=== PATIENT | male | born 1935 | race Caucasian/White ===

== ENCOUNTER → 2019-04-27 | Outpatient (CLI) | payer MEDICARE ==
--- NOTE | 2019-04-27 22:14 | MR ---
EXAMINATION TYPE: MR iac wo/w con DATE OF EXAM: 04/27/2019 COMPARISON: None HISTORY: Vertigo CONTRAST: Performed utilizing 9 mL intravenous Gadavist gadolinium contrast. TECHNIQUE: Multiplanar, multiecho imaging on a 3.0 Josefina magnet is performed through the brain. Atte ntion is paid to the internal auditory canals with thin section imaging. Postcontrast imaging is per formed through the internal auditory canals. FINDINGS:Craniovertebral junction is normal. The pituitary is normal. Diffusion-weighted imaging is performed. No suspicious hyperintensity is present to suggest an acute intracranial infarct or acute ischemic area. Signal within the brain appears within normal limits. No suspicious hyperintensities in the white mat ter. Cerebellum appears normal. Thin section imaging is performed through the internal auditory canals and cerebellar pontine angles. No cerebellar pontine angle masses are evident. The internal auditory canals appear normal without expansion or erosion. Postcontrast imaging was performed. No suspicious enhancement is evident within the internal audito ry canals or the included portions of the brain. Postcontrast thin section imaging through the internal auditory canals is somewhat limited due to mot ion artifact. However, precontrast images did not suggest abnormality no area of suspicious signal ch anges identified within the internal auditory canals. Mastoid air cells are clear. Visualized paranasal sinuses are clear. Cerebellar pontine angles are no rmal IMPRESSIONS: 1. Normal internal auditory canals.
== END | disposition home or self-care (01) ==
LOC: RADMRIMAIN 12:59
PROVIDERS: ATTEND Otolaryngology
DX: H91.90 Unspecified hearing loss, unspecified ear (principal); R42 Dizziness and giddiness
CPT/HCPCS: 70553; A9585

== ENCOUNTER 2020-03-19 08:36 | Emergency (ER) | payer MEDICARE, OTHER ==
[2020-03-19 08:45] VITALS: RESP 18; TEMP 97.5
[2020-03-19] MEDS ORDERED: SODIUM CHLORIDE 0.9% 1,000 ML IV STA (09:21)
[2020-03-19 09:37] LABS: Basophils # (A) 0.1 k/uL (0-0.2); Basophils % (A) 1 %; Eosinophils # (A) 0.2 k/uL (0-0.7); Eosinophils % (A) 2 %; HCT 52.2 % (39.0-53.0); HGB 17.7 gm/dL (13.0-17.5); Lymphocytes # (A) 1.9 k/uL (1.0-4.8); Lymphocytes % (A) 19 %; MCV 91.2 fL (80.0-100.0); Monocytes # (A) 0.7 k/uL (0-1.0); Monocytes % (A) 7 %; Neutrophils # (A) 6.7 k/uL (1.3-7.7); Neutrophils % (A) 70 %; Platelet Count 138 k/uL (150-450); RBC 5.72 m/uL (4.30-5.90); RDW 13.8 % (11.5-15.5); WBC 9.7 k/uL (3.8-10.6)
--- NOTE | 2020-03-19 09:41 | XR ---
EXAMINATION TYPE: XR chest 2V DATE OF EXAM: 03/19/2020 COMPARISON: 11/11/2019. TECHNIQUE: PA and lateral views submitted. HISTORY: Dizziness FINDINGS: The lungs are clear and there is no pneumothorax, pleural effusion, or focal pneumonia. Hyperinflat ion suggests COPD. Linear changes involving the right mid and lower lung likely in the basis of atele ctasis. No overt failure. Arthropathy of the shoulders and degenerative change of the spine. Apical p leural thickening noted. IMPRESSION: 1. COPD. Right perihilar and lower lobe atelectasis favored over infiltrate correlate clinically
[2020-03-19 09:47] LABS: Albumin 3.8 g/dL (3.5-5.0); Calcium 9.7 mg/dL (8.4-10.2); Potassium 4.3 mmol/L (3.5-5.1); Total Bilirubin 0.8 mg/dL (0.2-1.3); Total Protein 6.3 g/dL (6.3-8.2)
--- NOTE | 2020-03-19 09:51 | ED ---
General Adult HPI - General Chief complaint: Recheck/Abnormal Lab/Rx Stated complaint: hypertension Source: patient Mode of arrival: ambulatory Limitations: no limitations - History of Present Illness Initial comments: Patient is an 84-year-old male presents emergency department after he had an episode of vertigo yesterday. Patient states that he has suffered from "dizzy spells" for several years. The episodes usually last only a few minutes before they resolve. It is described as a room spinning sensation. He did see Dr. Caldwell and had a workup in regards to these spells. He had an MRI performed in October. He is on meclizine at home for his symptoms. States that last night he was watching TV when he had sudden onset of muffled hearing. He began having the room spinning sensation and felt nauseated. He walked to the bathroom where he ended up having a bowel movement and an episode of emesis. States that his symptoms completely resolved after 15 minutes. Reports that this is the worst episode that he's ever had. He has never seen a neurologist. Patient reports that he did not want to come to the hospital however his made him. He denies having any chest pain or shortness of breath with the episode. No recent head trauma. No fevers or chills. No reported confusion from the . No unilateral numbness or weakness in his extremities. No other alleviating, precipitating or modifying factors - Related Data Home Medications Medication Instructions Recorded Confirmed Carvedilol [Coreg] 12.5 mg PO HS 11/10/19 03/19/20 Cyclobenzaprine [Flexeril] 10 mg PO HS 11/10/19 03/19/20 Ketoconazole 2% Shampoo [Nizoral] 1 applic TOPICAL Q72H 11/10/19 03/19/20 Rosuvastatin [Crestor] 10 mg PO HS 11/10/19 03/19/20 Tamsulosin [Flomax] 0.8 mg PO HS 11/10/19 03/19/20 predniSONE 10 mg PO HS 11/10/19 03/19/20 Acetaminophen Tab [Tylenol] 650 mg PO HS 03/19/20 03/19/20 Doxylamine Succinate [Unisom] 25 mg PO HS 03/19/20 03/19/20 Meclizine [Antivert] 25 mg PO HS 03/19/20 03/19/20 Melatonin 3 mg PO HS 03/19/20 03/19/20 Meloxicam 15 mg PO HS 03/19/20 03/19/20 Metoprolol Tartrate [Lopressor] 25 mg PO BID 03/19/20 03/19/20 amLODIPine [Norvasc] 5 mg PO HS 03/19/20 03/19/20 Allergies Allergy/AdvReac Type Severity Reaction Status Date / Time No Known Allergies Allergy Verified 03/19/20 10:33 Review of Systems ROS Statement: Those systems with pertinent positive or pertinent negative responses have been documented in the HPI. ROS Other: All systems not noted in ROS Statement are negative. Past Medical History Past Medical History: Hyperlipidemia, Hypertension, Prostate Disorder History of Any Multi-Drug Resistant Organisms: None Reported Past Surgical History: Appendectomy Additional Past Surgical History / Comment(s): KIDNEY STONE SURGERY Past Anesthesia/Blood Transfusion Reactions: No Reported Reaction Past Psychological History: No Psychological Hx Reported Smoking Status: Former smoker Past Alcohol Use History: None Reported Past Drug Use History: None Reported - Past Family History Son(s) Family Medical History: Cancer Additional Family Medical History / Comment(s): hodgkins General Exam Limitations: no limitations Course Vital Signs 03/19/20 03/19/20 03/19/20 08:41 08:59 10:30 Temperature 97.5 F L Pulse Rate 78 72 64 Respiratory 18 18 18 Rate Blood Pressure 158/95 133/86 159/90 O2 Sat by Pulse 97 99 96 Oximetry 03/19/20 11:08 Temperature Pulse Rate 69 Respiratory 18 Rate Blood Pressure 157/92 O2 Sat by Pulse 97 Oximetry EKG Findings - EKG Comments: EKG Findings:: EKG demonstrates normal sinus rhythm with a ventricular rate of 73. TX interval 166. QRS 104. QTC of 451. No acute ST segment elevations or depressions concerning for ischemic changes Medical Decision Making - Medical Decision Making Upon arrival patient is placed into room 6. A thorough history and physical exa m was performed. 12-lead EKG was performed. Laboratory studies were conducted. I did recommend a CT the patient's brain as he is reporting that these are the worse symptoms he has ever experienced. Laboratory studies demonstrate a creatinine of 1.29. Troponin is negative. CT the patient's brain demonstrates mild ventriculomegaly. These results are discussed with the patient. I do believe that he would benefit from a neurology consultation. Patient is to follow up with his primary care physician and request recommendations. He is to continue taking the same medications at home for her symptoms. He does have follow-up appointment with Dr. Moser scheduled in 2 weeks for which she will need blood work obtained previous to this appointment. I informed him that he needs to assess his kidney function status with Dr. Isaacs at that time. If the patient is a new or worsening symptoms she should return to the emergency room. Patient was discharged home in stable condition - Lab Data Result diagrams: 03/19/20 09:26 03/19/20 09:26 Lab Results 03/19/20 03/19/20 03/19/20 Range/Units 09:26 09:26 09:26 WBC 9.7 (3.8-10.6) k/uL RBC 5.72 (4.30-5.90) m/uL Hgb 17.7 H (13.0-17.5) gm/dL Hct 52.2 (39.0-53.0) % MCV 91.2 (80.0-100.0) fL MCH 31.0 (25.0-35.0) pg MCHC 34.0 (31.0-37.0) g/dL RDW 13.8 (11.5-15.5) % Plt Count 138 L (150-450) k/uL MPV 7.0 Neutrophils % 70 % Lymphocytes % 19 % Monocytes % 7 % Eosinophils % 2 % Basophils % 1 % Neutrophils # 6.7 (1.3-7.7) k/uL Lymphocytes # 1.9 (1.0-4.8) k/uL Monocytes # 0.7 (0-1.0) k/uL Eosinophils # 0.2 (0-0.7) k/uL Basophils # 0.1 (0-0.2) k/uL PT 10.7 (9.0-12.0) sec INR 1.0 (<1.2) APTT 24.0 (22.0-30.0) sec Sodium (137-145) mmol/L Potassium (3.5-5.1) mmol/L Chloride (98-107) mmol/L Carbon Dioxide (22-30) mmol/L Anion Gap mmol/L BUN (9-20) mg/dL Creatinine (0.66-1.25) mg/dL Est GFR (CKD-EPI)AfAm (>60 ml/min/1.73 sqM) Est GFR (CKD-EPI)NonAf (>60 ml/min/1.73 sqM) Glucose (74-99) mg/dL Plasma Lactic Acid Chivo (0.7-2.0) mmol/L Calcium (8.4-10.2) mg/dL Total Bilirubin (0.2-1.3) mg/dL AST (17-59) U/L ALT (4-49) U/L Alkaline Phosphatase (38-126) U/L Troponin I (0.000-0.034) ng/mL Total Protein (6.3-8.2) g/dL Albumin (3.5-5.0) g/dL Urine Color Yellow Urine Appearance Clear (Clear) Urine pH 6.5 (5.0-8.0) Ur Specific [place] 1.012 (1.001-1.035) Urine Protein Trace H (Negative) Urine Glucose (UA) Negative (Negative) Urine Ketones Negative (Negative) Urine Blood Negative (Negative) Urine Nitrite Negative (Negative) Urine Bilirubin Negative (Negative) Urine Urobilinogen <2.0 (<2.0) mg/dL Ur Leukocyte Esterase Trace H (Negative) Urine RBC <1 (0-5) /hpf Urine WBC 2 (0-5) /hpf Urine Mucus Rare H (None) /hpf 03/19/20 03/19/20 03/19/20 Range/Units 09:26 09:26 09:26 WBC (3.8-10.6) k/uL RBC (4.30-5.90) m/uL Hgb (13.0-17.5) gm/dL Hct (39.0-53.0) % MCV (80.0-100.0) fL MCH (25.0-35.0) pg MCHC (31.0-37.0) g/dL RDW (11.5-15.5) % Plt Count (150-450) k/uL MPV Neutrophils % % Lymphocytes % % Monocytes % % Eosinophils % % Basophils % % Neutrophils # (1.3-7.7) k/uL Lymphocytes # (1.0-4.8) k/uL Monocytes # (0-1.0) k/uL Eosinophils # (0-0.7) k/uL Basophils # (0-0.2) k/uL PT (9.0-12.0) sec INR (<1.2) APTT (22.0-30.0) sec Sodium 138 (137-145) mmol/L Potassium 4.3 (3.5-5.1) mmol/L Chloride 103 (98-107) mmol/L Carbon Dioxide 31 H (22-30) mmol/L Anion Gap 4 mmol/L BUN 24 H (9-20) mg/dL Creatinine 1.29 H (0.66-1.25) mg/dL Est GFR (CKD-EPI)AfAm 58 (>60 ml/min/1.73 sqM) Est GFR (CKD-EPI)NonAf 50 (>60 ml/min/1.73 sqM) Glucose 102 H (74-99) mg/dL Plasma Lactic Acid Chivo 1.1 (0.7-2.0) mmol/L Calcium 9.7 (8.4-10.2) mg/dL Total Bilirubin 0.8 (0.2-1.3) mg/dL AST 33 (17-59) U/L ALT 30 (4-49) U/L Alkaline Phosphatase 76 (38-126) U/L Troponin I <0.012 (0.000-0.034) ng/mL Total Protein 6.3 (6.3-8.2) g/dL Albumin 3.8 (3.5-5.0) g/dL Urine Color Urine Appearance (Clear) Urine pH (5.0-8.0) Ur Specific [place] (1.001-1.035) Urine Protein (Negative) Urine Glucose (UA) (Negative) Urine Ketones (Negative) Urine Blood (Negative) Urine Nitrite (Negative) Urine Bilirubin (Negative) Urine Urobilinogen (<2.0) mg/dL Ur Leukocyte Esterase (Negative) Urine RBC (0-5) /hpf Urine WBC (0-5) /hpf Urine Mucus (None) /hpf Disposition Clinical Impression: Vertigo, Cerebral ventriculomegaly Disposition: HOME SELF-CARE Condition: Stable Instructions (If sedation given, give patient instructions): Dizziness (ED) Additional Instructions: I recommend that you follow up with a neurologist in regard to your dizzy spells and large ventricles. Some neurologists in the area are - Dr. Aguilar, Dr. Gaffney and Dr. Art. Follow-up with your bin cleaner and have repeat laboratory studies done to ensure improvement in your kidney function. Return to the emergency room for any new or worsening symptoms Is patient prescribed a controlled substance at d/c from ED?: No Referrals: Manpreet Brock MD [Primary Care Provider] - 1-2 days Time of Disposition: 10:56
[2020-03-19 09:57] LABS: Prothrombin Time 10.7 sec (9.0-12.0)
--- NOTE | 2020-03-19 10:03 | CT ---
EXAMINATION TYPE: CT brain wo con DATE OF EXAM: 03/19/2020 COMPARISON: Correlation MRI 11/11/2019 HISTORY: 84-year-old male Dizziness TECHNIQUE: Examination was done in axial plane without intravenous contrast. Coronal and sagittal r econstructions performed. CT DLP: 1063.4 mGycm Automated exposure control for dose reduction was used. FINDINGS: There is no evidence of acute intracranial hemorrhage, acute ischemic changes, mass, mass-effect, or extra-axial fluid collection. There is no effacement of cerebral sulci or basal subarachnoid cister ns. There is mild ventriculomegaly with Smart ratio calculated at 0.38. Mild bifrontal atrophy. There is no midline shift. Lowery-white matter distinction is preserved. Atherosclerotic calcifications in the carotid siphons. Paranasal sinuses and mastoid air cells are well pneumatized. Orbits and globes are intact IMPRESSION: Mild generalized atrophy. Mild ventriculomegaly with Josafat's ratio of 0.38 may reflect central cerebra l atrophy. Correlate to exclude a component of NPH. Otherwise, no acute intracranial abnormality seen .
[2020-03-19 10:40] LABS: Appearance,Urine Clear (Clear); Bilirubin,Urine Negative (Negative); Blood,Urine Negative (Negative); Color,Urine Yellow; Glucose,Urine (UA) Negative (Negative); Ketones,Urine Negative (Negative); Leukocyte Esterase,Urine Trace (Negative); Mucus,Urine Rare /hpf; Nitrite,Urine Negative (Negative); PH, Urine 6.5 (5.0-8.0); Protein,Urine Trace (Negative); RBC,Urine <1 /hpf (0-5); Specific Gravity,Urine 1.012 (1.001-1.035); Urobilinogen,Urine <2.0 mg/dL (<2.0); WBC,Urine 2 /hpf (0-5)
[2020-03-19 11:09] VITALS: BP 157/92; PULSE 69
== END 2020-03-19 11:03 | disposition home or self-care (01) ==
LOC: EC 08:36
DX: G93.89 Other specified disorders of brain (principal); R42 Dizziness and giddiness; R11.2 Nausea with vomiting, unspecified; E78.5 Hyperlipidemia, unspecified; I10 Essential (primary) hypertension; N42.9 Disorder of prostate, unspecified; Z79.899 Other long term (current) drug therapy; Z87.891 Personal history of nicotine dependence; Z90.49 Acquired absence of other specified parts of digestive tract
CPT/HCPCS: 36415; 70450; 71046; 80053; 81001; 83605; 84484; 85025; 85610; 85730; 93005; 96374; 99284

== ENCOUNTER 2020-09-12 10:48 | Inpatient (IN) | payer MEDICARE, OTHER ==
[2020-09-12] MEDS ORDERED: MORPHINE SULFATE 2 MG/ML SYRINGE IVP STA (11:22)
[2020-09-12] MEDS ORDERED: SODIUM CHLORIDE 0.9% 500 ML 500 ML IV SCH (11:30)
--- NOTE | 2020-09-12 11:51 | US ---
EXAMINATION TYPE: US venous doppler duplex LE RT DATE OF EXAM: 09/12/2020 11:44 AM COMPARISON: NONE CLINICAL HISTORY: pain. Recent infection in shoulder, treating with antibiotics, but his right knee a nd calf have swollen up and are very painful, no h/o dvt SIDE PERFORMED: Right TECHNIQUE: The lower extremity deep venous system is examined utilizing real time linear array sonog carroll with graded compression, doppler sonography and color-flow sonography. VESSELS IMAGED: Common Femoral Vein Deep Femoral Vein Greater Saphenous Vein * Femoral Vein Popliteal Vein Small Saphenous Vein * Proximal Calf Veins (* superficial vessels) Right Leg: Negative for DVT IMPRESSION: 1. No evidence of deep venous thrombosis in the right lower extremity veins.
[2020-09-12 12:09] LABS: Basophils # (A) 0.1 k/uL (0-0.2); Basophils % (A) 1 %; Eosinophils # (A) 0.3 k/uL (0-0.7); Eosinophils % (A) 4 %; HGB 14.5 gm/dL (13.0-17.5); Lymphocytes # (A) 1.7 k/uL (1.0-4.8); Lymphocytes % (A) 17 %; MCH 29.9 pg (25.0-35.0); MCHC 33.7 g/dL (31.0-37.0); MCV 88.9 fL (80.0-100.0); Monocytes # (A) 0.8 k/uL (0-1.0); Monocytes % (A) 9 %; Neutrophils # (A) 6.5 k/uL (1.3-7.7); Neutrophils % (A) 68 %; Platelet Count 151 k/uL (150-450); RBC 4.84 m/uL (4.30-5.90); RDW 13.5 % (11.5-15.5); WBC 9.5 k/uL (3.8-10.6)
[2020-09-12 12:21] LABS: Partial Thromboplastin Time 22.4 sec (22.0-30.0); Prothrombin Time 10.6 sec (9.0-12.0)
[2020-09-12 12:25] LABS: Albumin 3.4 g/dL (3.5-5.0); C Reactive Protein 6.3 mg/dL (<1.0); Calcium 9.6 mg/dL (8.4-10.2); Potassium 4.1 mmol/L (3.5-5.1); Total Bilirubin 0.7 mg/dL (0.2-1.3); Total Protein 5.8 g/dL (6.3-8.2)
--- NOTE | 2020-09-12 12:45 | XR ---
EXAMINATION TYPE: XR knee complete RT DATE OF EXAM: 09/12/2020 COMPARISON: NONE HISTORY: Pain TECHNIQUE: Three views are submitted. FINDINGS: Complete loss of joint spaces the medial and lateral compartment. Large suprapatellar bursal fluid co llection hypertrophic spurring of the patella and narrowing of the femoral joint. Vascular and soft t issue calcifications noted. No erosive changes. IMPRESSION: 1. Severe osteoarthritis with complete loss of joint space involving the medial compartment of the kn ee. 2. Large suprapatellar bursal
[2020-09-12] MEDS ORDERED: HYDROmorphone 0.5 MG/0.5 ML SYRINGE IVP STA ×2 (12:54→14:13)
[2020-09-12] MEDS ORDERED: ACETAMINOPHEN TAB 325 MG TAB PO STA (12:55)
[2020-09-12 13:40] LABS: Erythrocyte Sedimentation Rate 13 mm/hr (0-15)
--- NOTE | 2020-09-12 14:29 | ED ---
General Adult HPI - General Chief complaint: Extremity Injury, Lower Stated complaint: Knee pain Time Seen by Provider: 09/12/20 11:05 Source: patient Mode of arrival: ambulatory Limitations: no limitations - History of Present Illness Initial comments: 84-year-old male with a past medical history of hyperlipidemia, hypertension presents to the emergency room for a chief complaint of right knee pain. Patient reports that he had shoulder surgery about 2 months ago in [place] and had a wound infection, was being treated with rifampin and clindamycin over the past month orally. Over the past few days he started to have right knee pain and swelling. States that he has pain walking on the knee. States he can no longer bend his knee. Patient is concerned it could be related to the shoulder infection.Patient has no other complaints at this time including shortness of breath, chest pain, abdominal pain, nausea or vomiting, headache, or visual c hanges. - Related Data Home Medications Medication Instructions Recorded Confirmed Carvedilol [Coreg] 12.5 mg PO HS 11/10/19 03/19/20 Cyclobenzaprine [Flexeril] 10 mg PO HS 11/10/19 03/19/20 Ketoconazole 2% Shampoo [Nizoral] 1 applic TOPICAL Q72H 11/10/19 03/19/20 Rosuvastatin [Crestor] 10 mg PO HS 11/10/19 03/19/20 Tamsulosin [Flomax] 0.8 mg PO HS 11/10/19 03/19/20 predniSONE 10 mg PO HS 11/10/19 03/19/20 Acetaminophen Tab [Tylenol] 650 mg PO 03/19/20 03/19/20 Doxylamine Succinate [Unisom] 25 mg PO HS 03/19/20 03/19/20 Meclizine [Antivert] 25 mg PO HS 03/19/20 03/19/20 Melatonin 3 mg PO 03/19/20 03/19/20 Meloxicam 15 mg PO HS 03/19/20 03/19/20 Metoprolol Tartrate [Lopressor] 25 mg PO BID 03/19/20 03/19/20 amLODIPine [Norvasc] 5 mg PO HS 03/19/20 03/19/20 Allergies Allergy/AdvReac Type Severity Reaction Status Date / Time No Known Allergies Allergy Verified 06/30/21 10:51 Review of Systems ROS Statement: Those systems with pertinent positive or pertinent negative responses have been documented in the HPI. ROS Other: All systems not noted in ROS Statement are negative. Past Medical History Past Medical History: Hyperlipidemia, Hypertension, Prostate Disorder History of Any Multi-Drug Resistant Organisms: None Reported Past Surgical History: Appendectomy Additional Past Surgical History / Comment(s): KIDNEY STONE SURGERY Past Anesthesia/Blood Transfusion Reactions: No Reported Reaction Past Psychological History: No Psychological Hx Reported Smoking Status: Former smoker Past Alcohol Use History: None Reported Past Drug Use History: None Reported - Past Family History Son(s) Family Medical History: Cancer Additional Family Medical History / Comment(s): hodgkins General Exam Limitations: no limitations General appearance: alert, in no apparent distress Head exam: Present: atraumatic, normocephalic, normal inspection Eye exam: Present: normal appearance, PERRL, EOMI. Absent: scleral icterus, conjunctival injection, periorbital swelling ENT exam: Present: normal exam, mucous membranes moist Neck exam: Present: normal inspection. Absent: tenderness, meningismus, lymphadenopathy Respiratory exam: Present: normal lung sounds bilaterally. Absent: respiratory distress, wheezes, rales, rhonchi, stridor Cardiovascular Exam: Present: regular rate, normal rhythm, normal heart sounds. Absent: systolic murmur, diastolic murmur, rubs, gallop, clicks GI/Abdominal exam: Present: soft, normal bowel sounds. Absent: distended, tenderness, guarding, rebound, rigid Extremities exam: Present: normal capillary refill (Capillary refill less than 2 seconds, DP pulse 2+ right lower extremity.), joint swelling (Significant edema noted of the right knee), other (No cellulitis noted of the right knee.). Absent: full ROM (Patient has 15 flexion, extension to neutral position of the right knee.), calf tenderness Course Vital Signs 09/12/20 09/12/20 09/12/20 10:51 12:40 14:00 Temperature 98 F 101.1 F H Pulse Rate 90 106 H 102 H Respiratory 18 20 20 Rate Blood Pressure 184/107 142/87 138/71 O2 Sat by Pulse 98 97 98 Oximetry Procedures - Joint Aspiration/Injection Consent Obtained: verbal consent Indications: R/O septic arthritis Side of Body: right Joint Aspirated: knee Ultrasound Guidance: No Skin Prep: Chlorhexidine Local Anesthesia Used: Lidocaine 1% Amount of Anesthesia Used (mLs): 2 Needle Size Used: 18G Syringe Size Used: 10cc Fluid Obtained: viscous Total Fluid Obtained (mls): 50 Patient Tolerated Procedure: well, no complications Medical Decision Making - Medical Decision Making Initially afebrile however did develop a fever of 101.1. Initially hypertensive which did improve throughout his stay. CBC shows a white count of 9. CMP unremarkable. CRP is elevated at 6.3. Ultrasound negative for DVT. X-ray of the right knee show significant arthritis with a large suprapatellar bursa. Sup rapatellar bursa of the right knee was tapped and culture sent. Given fever and significant edema patient will be started on broad-spectrum antibiotics. We will obtain a urinalysis and chest x-ray as well as blood cultures to thoroughly evaluate patient's fever source as well. I did discuss this case with Nadeem LINO from orthopedics who will consult on patient. Discussed case with medicine who will admit. - Lab Data Result diagrams: 09/12/20 11:42 09/12/20 11:42 Lab Results 09/12/20 09/12/20 09/12/20 Range/Units 11:42 11:42 11:42 WBC 9.5 (3.8-10.6) k/uL RBC 4.84 (4.30-5.90) m/uL Hgb 14.5 (13.0-17.5) gm/dL Hct 43.0 (39.0-53.0) % MCV 88.9 (80.0-100.0) fL MCH 29.9 (25.0-35.0) pg MCHC 33.7 (31.0-37.0) g/dL RDW 13.5 (11.5-15.5) % Plt Count 151 (150-450) k/uL MPV 7.0 Neutrophils % 68 % Lymphocytes % 17 % Monocytes % 9 % Eosinophils % 4 % Basophils % 1 % Neutrophils # 6.5 (1.3-7.7) k/uL Lymphocytes # 1.7 (1.0-4.8) k/uL Monocytes # 0.8 (0-1.0) k/uL Eosinophils # 0.3 (0-0.7) k/uL Basophils # 0.1 (0-0.2) k/uL ESR 13 (0-15) mm/hr PT 10.6 (9.0-12.0) sec INR 1.0 (<1.2) APTT 22.4 (22.0-30.0) sec Sodium 137 (137-145) mmol/L Potassium 4.1 (3.5-5.1) mmol/L Chloride 103 (98-107) mmol/L Carbon Dioxide 28 (22-30) mmol/L Anion Gap 6 mmol/L BUN 21 H (9-20) mg/dL Creatinine 1.10 (0.66-1.25) mg/dL Est GFR (CKD-EPI)AfAm 71 (>60 ml/min/1.73 sqM) Est GFR (CKD-EPI)NonAf 61 (>60 ml/min/1.73 sqM) Glucose 103 H (74-99) mg/dL Plasma Lactic Acid Chivo (0.7-2.0) mmol/L Calcium 9.6 (8.4-10.2) mg/dL Total Bilirubin 0.7 (0.2-1.3) mg/dL AST 27 (17-59) U/L ALT 13 (4-49) U/L Alkaline Phosphatase 103 (38-126) U/L C-Reactive Protein 6.3 H (<1.0) mg/dL Total Protein 5.8 L (6.3-8.2) g/dL Albumin 3.4 L (3.5-5.0) g/dL 09/12/20 Range/Units 11:42 WBC (3.8-10.6) k/uL RBC (4.30-5.90) m/uL Hgb (13.0-17.5) gm/dL Hct (39.0-53.0) % MCV (80.0-100.0) fL MCH (25.0-35.0) pg MCHC (31.0-37.0) g/dL RDW (11.5-15.5) % Plt Count (150-450) k/uL MPV Neutrophils % % Lymphocytes % % Monocytes % % Eosinophils % % Basophils % % Neutrophils # (1.3-7.7) k/uL Lymphocytes # (1.0-4.8) k/uL Monocytes # (0-1.0) k/uL Eosinophils # (0-0.7) k/uL Basophils # (0-0.2) k/uL ESR (0-15) mm/hr PT (9.0-12.0) sec INR (<1.2) APTT (22.0-30.0) sec Sodium (137-145) mmol/L Potassium (3.5-5.1) mmol/L Chloride (98-107) mmol/L Carbon Dioxide (22-30) mmol/L Anion Gap mmol/L BUN (9-20) mg/dL Creatinine (0.66-1.25) mg/dL Est GFR (CKD-EPI)AfAm (>60 ml/min/1.73 sqM) Est GFR (CKD-EPI)NonAf (>60 ml/min/1.73 sqM) Glucose (74-99) mg/dL Plasma Lactic Acid Chivo 1.1 (0.7-2.0) mmol/L Calcium (8.4-10.2) mg/dL Total Bilirubin (0.2-1.3) mg/dL AST (17-59) U/L ALT (4-49) U/L Alkaline Phosphatase (38-126) U/L C-Reactive Protein (<1.0) mg/dL Total Protein (6.3-8.2) g/dL Albumin (3.5-5.0) g/dL Disposition Clinical Impression: Fever Narrative: suspect septic arthritis Disposition: ADMITTED IP TO THIS HOSP Is patient prescribed a controlled substance at d/c from ED?: No Referrals: Manpreet Brock MD [Primary Care Provider] - 1-2 days Time of Disposition: 14:29
[2020-09-12] MEDS ORDERED: PIPERACILLIN-TAZOBACTAM 3.375 GM in SODIUM CHLORIDE 0.9% 100 ML IVPB STA (14:30)
[2020-09-12] MEDS ORDERED: VANCOMYCIN IV PER PHARMACY 1 EACH MISC MISCELLANE PRN (14:30)
[2020-09-12] MEDS ORDERED: NALOXONE 0.4 MG/ML 1 ML VIAL IV PRN (14:31)
[2020-09-12] MEDS ORDERED: ONDANSETRON 4 MG/2 ML VIAL IVP PRN (14:31)
[2020-09-12] MEDS ORDERED: ACETAMINOPHEN TAB 325 MG TAB PO PRN (14:31)
[2020-09-12] MEDS ORDERED: VANCOMYCIN 1,500 MG in SODIUM CHLORIDE 0.9% 250 ML IVPB STA (14:38)
[2020-09-12 14:44] LABS: Appearance,Urine Clear (Clear); Bilirubin,Urine Negative (Negative); Blood,Urine Trace (Negative); Color,Urine Dark Yellow; Glucose,Urine (UA) Negative (Negative); Ketones,Urine 1+ (Negative); Leukocyte Esterase,Urine Negative (Negative); Mucus,Urine Rare /hpf; Nitrite,Urine Negative (Negative); PH, Urine 5.5 (5.0-8.0); Protein,Urine 1+ (Negative); RBC,Urine 1 /hpf (0-5); Specific Gravity,Urine 1.023 (1.001-1.035); Urobilinogen,Urine <2.0 mg/dL (<2.0); WBC,Urine 3 /hpf (0-5)
[2020-09-12] MEDS: SODIUM CHLORIDE 0.9% 1,000 ML IV SCH ×2 (15:00→23:48)
[2020-09-12 15:03] LABS: Appearance,BF Cloudy; Nucleated Cells, Body Fluid 2680 /uL; RBC, Body Fluid 160 /uL
[2020-09-12 15:17] LABS: Mononuclear WBC,Body Fluid 39 %; Polynuclear WBC,Body Fluid 61 %; Total Cells Counted,Body Fluid 100
--- NOTE | 2020-09-12 17:16 | XR ---
EXAMINATION TYPE: XR chest 2V DATE OF EXAM: 09/12/2020 COMPARISON: 03/19/2020 HISTORY: Fever TECHNIQUE: Frontal and lateral views of the chest are obtained. FINDINGS: There is minimal right basilar hazy opacity. No pleural effusion, or pneumothorax seen. T he cardiac silhouette size is within normal limits. No acute osseous abnormality. Interval right shou lder arthroplasty seen. IMPRESSION: Minimal right basilar opacity, compatible with atelectasis.
[2020-09-12] MEDS: HYDROmorphone 0.5 MG/0.5 ML SYRINGE IVP PRN ×2 (17:59→23:47)
--- NOTE | 2020-09-12 18:10 | P.CNOR ---
<Nadeem Rob - Last Filed: 09/12/20 18:10> History of Present Illness - [facility] Consult date: 09/12/20 History of present illness: This patient is an 84- year old male with a past medical history of hyperlipidemia, hypertension that presented to [facility] emergency department today with complaints of right knee pain. The patient states there is no injury. He states he began experiencing right knee pain about a week ago. He states the pain has slowly been increasing over the past few days, and today he was unable to bend or straighten the knee without pain. He also notes significant swelling. Therefore, he presented to the emergency department for further evaluation. Patient's white blood cell count is 9.5, CRP is 6.3, current temperature is 99.9F. Patient's right knee was aspirated in the emergency department, synovial fluid was sent to the lab for analysis. Doppler US of the right lower extremity negative for DVT. Patient was admitted under the care of internal medicine, with a consult placed to orthopedic surgery for concern of the right knee septic arthritis. He states he has a history of right shoulder surgery in early July of this year at [place]. He states he did have an infection following the surgery, although he ever required an I&D or additional operation. He states that this infection was treated with oral antibiotics. Patient states he has otherwise felt well lately with no recent sickness. He denies chest pain, shortness breath, nausea, vomiting, fevers, chills. He is otherwise feeling well besides his knee pain. He denies pain in other joints. Vital signs stable. Dr. Solis is also bedside examining the patient at this time. Past Medical History Past Medical History: Hyperlipidemia, Hypertension, Prostate Disorder History of Any Multi-Drug Resistant Organisms: None Reported Past Surgical History: Appendectomy Additional Past Surgical History / Comment(s): KIDNEY STONE SURGERY Past Anesthesia/Blood Transfusion Reactions: No Reported Reaction Past Psychological History: No Psychological Hx Reported Smoking Status: Former smoker Past Alcohol Use History: None Reported Past Drug Use History: None Reported - Past Family History Son(s) Family Medical History: Cancer Additional Family Medical History / Comment(s): hodgkins Medications and Allergies Home Medications Medication Instructions Recorded Confirmed Type Cyclobenzaprine [Flexeril] 10 mg PO HS PRN 11/10/19 09/12/20 History Rosuvastatin [Crestor] 10 mg PO HS 11/10/19 09/12/20 History Tamsulosin [Flomax] 0.8 mg PO HS 11/10/19 09/12/20 History predniSONE 10 mg PO HS 11/10/19 09/12/20 History Meclizine [Antivert] 25 mg PO HS 03/19/20 09/12/20 History Meloxicam 15 mg PO HS 03/19/20 09/12/20 History Metoprolol Tartrate [Lopressor] 12.5 mg PO HS 03/19/20 09/12/20 History amLODIPine [Norvasc] 5 mg PO HS 03/19/20 09/12/20 History Carvedilol [Coreg] 25 mg PO BID 09/12/20 09/12/20 History Diazepam [Valium] 5 mg PO TID PRN 09/12/20 09/12/20 History Donepezil [Aricept] 20 mg PO HS 09/12/20 09/12/20 History clindamycin HCL [Cleocin] 300 mg PO BID 09/12/20 09/12/20 History rifAMPin [Rifampin] 300 mg PO BID 09/12/20 09/12/20 History Allergies Allergy/AdvReac Type Severity Reaction Status Date / Time No Known Allergies Allergy Verified 09/12/20 15:08 Physical Examination On examination, the patient is lying in bed in no apparent distress. He is alert and oriented 3. His head appears atraumatic and normocephalic. His breathing appears nonlabored. On inspection of his bilateral upper extremities, there is no obvious deformity or signs of trauma. There is a healed incision of the right anterior shoulder with no signs of infection. Inspection of the left lower extremity, no obvious deformities or signs of trauma. On inspection of the right knee, there is diffuse swelling. The patient has a very large knee effusion. There is no significant warmth or erythema to the knee. No open wounds or lacerations. There is diffuse pain on palpation of the knee. No pain on palpation of the right hip, thigh, lower leg, ankle, foot. There is pain with passive range of motion of the knee at extremes, although I am able to perform gentle flexion and extension without discomfort of the patient. Stability of the knee is unable to be assessed due to pain. Motor and sensory function is intact of the right lower extremity. Dorsalis pedis pulse +2, the right lower extremity is warm and well-perfused with brisk capillary refill distally. The calf is soft nontender to palpation. Results Right knee x-ray 09/12/20: Severe tricompartmental arthritis of the right knee. No acute fractures. - Labs Labs: Abnormal Lab Results - Last 24 Hours (Table) 09/12/20 09/12/20 Range/Units 11:42 14:29 BUN 21 H (9-20) mg/dL Glucose 103 H (74-99) mg/dL C-Reactive Protein 6.3 H (<1.0) mg/dL Total Protein 5.8 L (6.3-8.2) g/dL Albumin 3.4 L (3.5-5.0) g/dL Urine Protein 1+ H (Negative) Urine Ketones 1+ H (Negative) Urine Blood Trace H (Negative) Urine Mucus Rare H (None) /hpf H & H 09/12/20 Range/Units 11:42 Hgb 14.5 (13.0-17.5) gm/dL Hct 43.0 (39.0-53.0) % Coagulation 09/12/20 Range/Units 11:42 INR 1.0 (<1.2) Result Diagrams: 09/12/20 11:42 09/12/20 11:42 Assessment and Plan Assessment: Right knee pain Right knee effusion Severe right knee arthritis Plan: - Patient was discussed with Dr. Rodríguez. Upon review of the patient's right knee synovial fluid analysis, nucleated cells resulted as 2,680 /uL. There is low concern for septic arthritis of the right knee at this time. We have do not have plans for emergent surgery at this time. Crystals and culture results are currently still pending. - Recommended rest and elevate of the knee for swelling and pain control. - Antibiotics and medical management per admitting team. - We will re-assess patient in the morning and make recommendations as needed. <Elizabeth Rodríguez - Last Filed: 09/13/20 09:30> Physical Examination Osteopathic Statement: *. No significant issues noted on an osteopathic structural exam other than those noted in the History and Physical/Consult. Results - Labs Labs: Abnormal Lab Results - Last 24 Hours (Table) 09/12/20 09/12/20 09/12/20 Range/Units 11:42 14:29 14:29 BUN 21 H (9-20) mg/dL Glucose 103 H (74-99) mg/dL C-Reactive Protein 6.3 H (<1.0) mg/dL Total Protein 5.8 L (6.3-8.2) g/dL Albumin 3.4 L (3.5-5.0) g/dL Urine Protein 1+ H (Negative) Urine Ketones 1+ H (Negative) Urine Blood Trace H (Negative) Urine Mucus Rare H (None) /hpf Synovial Crystals Seen A (None Seen) Microbiology - Last 24 Hours (Table) 09/12/20 14:29 Gram Stain - Preliminary Knee - Right Body Fluid Culture - Preliminary H & H 09/12/20 Range/Units 11:42 Hgb 14.5 (13.0-17.5) gm/dL Hct 43.0 (39.0-53.0) % Coagulation 09/12/20 Range/Units 11:42 INR 1.0 (<1.2) Result Diagrams: 09/12/20 11:42 09/13/20 05:32 Assessment and Plan Plan: agree with above. images and labs reviewed. will follow closely
[2020-09-12] MEDS ORDERED: MECLIZINE 25 MG TAB PO PRN (18:28)
[2020-09-12 20:52] LABS: LDH, Body Fluid Source Body Fluid
[2020-09-12] MEDS ORDERED: predniSONE 10 MG TAB PO SCH (21:00)
[2020-09-12 21:28] LABS: Glucose, BF Source Body Fluid; Glucose, Body Fluid 71 mg/dL; Total Protein, Body Fluid 3300 mg/dL
[2020-09-12] MEDS: diazePAM 5 MG TAB PO PRN (21:47)
[2020-09-12] MEDS: HEPARIN SODIUM,PORCINE/PF 5,000 UNIT/0.5 ML SYRINGE SQ SCH (21:47)
[2020-09-12] MEDS: CYCLOBENZAPRINE 10 MG TAB PO PRN (21:47)
[2020-09-12] MEDS: TAMSULOSIN 0.4 MG CAP.ER.24H PO SCH (21:48)
[2020-09-12] MEDS: DONEPEZIL 10 MG TAB PO SCH (21:48)
[2020-09-12] MEDS: amLODIPine 5 MG TAB PO SCH (21:49)
[2020-09-12] MEDS: carvediloL 12.5 MG TAB PO SCH (21:52)
[2020-09-13] MEDS ORDERED: PIPERACILLIN-TAZOBACTAM 3.375 GM in SODIUM CHLORIDE 0.9% 100 ML IVPB SCH ×2
[2020-09-13] MEDS: SODIUM CHLORIDE 0.9% 1,000 ML IV SCH ×2 (00:22→08:03)
[2020-09-13] MEDS: HYDROmorphone 0.5 MG/0.5 ML SYRINGE IVP PRN ×4 (02:52→15:19)
--- NOTE | 2020-09-13 06:20 | P.HPIM ---
History of Present Illness H&P Date: 09/12/20 Chief Complaint: Right knee swelling and pain. Patient is a 84-year-old male with a known history of hypertension, hyperlipidemia, BPH and recent history of right shoulder surgery on July 19 presents to ER with complaints of right knee pain and swelling. Patient says that he has been having right knee increased swelling over the last weekend and gradually getting worse. Patient presented ER for evolution. Patient was tachycardic and febrile with T-max 101.1 on admission. Pulse ox 97% on room air. Denied any complaints of chest pain or shortness of breath. No cough or sputum production. No nausea vomiting or abdominal pain or diarrhea. Denied any weakness in the leg. No drainage. Patient says that she did have infection following the right shoulder surgery and underwent I&D and antibiotic course. Laboratory data showed pelvis and 9.5 hemoglobin 42.0 and platelets 151 BUN 21 and 1.1 CRP 6.3 and total protein 5.8, all living 3.4 UA negative for infection Chest x-ray showed minimal right basilar opacity compatible with atelectasis. X-ray of the right knee showed severe osteoarthritis with complete loss of joint space involving the medial compartment of the knee. Large suprapatellar bursal fluid collection.. Review of Systems Constitutional: Patient denies any fever or chills . No generalized weakness or weight loss. Abdomen: Patient denied nausea vomiting and diarrhea and abdominal pain. Cardiovascular: Patient denies any chest pain or short of breath no palpitations. Respiratory: patient denied any cough is from production. No shortness of breath Neurologic: Patient denied any numbness or tingling headache. Musculoskeletal: Right knee swelling and pain. Skin: Negative Psychiatric: Negative Endocrine: No heat or cold intolerance. No recent weight gain. Genitourinary: No dysuria or hematuria. All other 14 point ROS negative except the above Past Medical History Past Medical History: Hyperlipidemia, Hypertension, Prostate Disorder History of Any Multi-Drug Resistant Organisms: None Reported Past Surgical History: Appendectomy Additional Past Surgical History / Comment(s): KIDNEY STONE SURGERY Past Anesthesia/Blood Transfusion Reactions: No Reported Reaction Past Psychological History: No Psychological Hx Reported Smoking Status: Former smoker Past Alcohol Use History: None Reported Past Drug Use History: None Reported - Past Family History Son(s) Family Medical History: Cancer Additional Family Medical History / Comment(s): hodgkins Medications and Allergies Home Medications Medication Instructions Recorded Confirmed Type Cyclobenzaprine [Flexeril] 10 mg PO HS PRN 11/10/19 09/12/20 History Rosuvastatin [Crestor] 10 mg PO HS 11/10/19 09/12/20 History Tamsulosin [Flomax] 0.8 mg PO HS 11/10/19 09/12/20 History predniSONE 10 mg PO HS 11/10/19 09/12/20 History Meclizine [Antivert] 25 mg PO HS 03/19/20 09/12/20 History Meloxicam 15 mg PO HS 03/19/20 09/12/20 History Metoprolol Tartrate [Lopressor] 12.5 mg PO HS 03/19/20 09/12/20 History amLODIPine [Norvasc] 5 mg PO HS 03/19/20 09/12/20 History Carvedilol [Coreg] 25 mg PO BID 09/12/20 09/12/20 History Diazepam [Valium] 5 mg PO TID PRN 09/12/20 09/12/20 History Donepezil [Aricept] 20 mg PO HS 09/12/20 09/12/20 History clindamycin HCL [Cleocin] 300 mg PO BID 09/12/20 09/12/20 History rifAMPin [Rifampin] 300 mg PO BID 09/12/20 09/12/20 History Allergies Allergy/AdvReac Type Severity Reaction Status Date / Time No Known Allergies Allergy Verified 09/12/20 15:08 Physical Exam Vitals: Vital Signs Temp Pulse Pulse Resp BP BP Pulse Ox 09/12/20 18:48 98.3 F 96 19 168/84 95 09/12/20 18:12 97.9 F 102 H 22 216/80 95 09/12/20 16:57 99.9 F H 71 18 135/70 97 09/12/20 15:00 100.5 F H 72 18 141/67 98 09/12/20 14:00 102 H 20 138/71 98 09/12/20 12:40 101.1 F H 106 H 20 142/87 97 09/12/20 10:51 98 F 90 18 184/107 98 Intake and Output 09/12/20 09/12/20 09/12/20 06:59 14:59 22:59 Other: # Voids 1 Weight 81.647 kg 81.647 kg PHYSICAL EXAMINATION: Patient is lying in the bed comfortably, no acute distress, awake alert and oriented.. HEENT: Normocephalic. Neck is supple. Pupils reactive. Nostrils clear. Oral cav ity is moist. Neck reveals no JVD, carotid bruits, or thyromegaly. CHEST EXAMINATION: Trachea is central. Symmetrical expansion. Bibasilar diminished sounds, Lung zapien clear to auscultation and percussion. CARDIAC: Normal S1, S2 with no gallops. No murmurs ABDOMEN: Soft. Bowel sounds normal. No organomegaly. No abdominal bruits. Extremities: reveal no edema. No clubbing or cyanosis Neurologically awake, alert, oriented x3 with well-coordinated movements. No focal deficits noted Skin: No rash or skin lesions. Psychiatric: Coperative. Nonsuicidal Musculoskeletal: Patient does have right knee joint effusion, tenderness to palpation and warm to touch... Results CBC & Chem 7: 09/12/20 11:42 09/13/20 05:32 Labs: Abnormal Lab Results - Last 24 Hours (Table) 09/12/20 09/12/20 Range/Units 11:42 14:29 BUN 21 H (9-20) mg/dL Glucose 103 H (74-99) mg/dL C-Reactive Protein 6.3 H (<1.0) mg/dL Total Protein 5.8 L (6.3-8.2) g/dL Albumin 3.4 L (3.5-5.0) g/dL Urine Protein 1+ H (Negative) Urine Ketones 1+ H (Negative) Urine Blood Trace H (Negative) Urine Mucus Rare H (None) /hpf Microbiology - Last 24 Hours (Table) 09/12/20 14:29 Body Fluid Culture - Preliminary Knee - Right Thrombosis Risk Factor Assmnt - DVT/VTE Prophylaxis DVT/VTE Prophylaxis: Pharmacologic Prophylaxis ordered - Choose All That Apply Each Factor Represents 1 point: History of prior major surgery (<1month) Each Risk Factor Represents 3 Points: Age 75 years or older Thrombosis Risk Factor Assessment Total Risk Factor Score: 4 Thrombosis Risk Factor Assessment Level: Moderate Risk Assessment and Plan Assessment: Right knee joint effusion likely due to severe osteoarthritis versus gout Possible septic arthritis with fever and tachycardia but no leukocytosis. Recent right shoulder surgery on 07/19/2020 followed by infection and I&D, status post antibiotic course. Hypertension Hyperlipidemia BPH DVT prophylaxis with heparin subcu Previous history of smoking Plan: Patient will be continued on pain management and IV antibiotics in the form of vancomycin. He was given a dose of Zosyn in the ER. Patient was seen by orthopedic surgery and underwent right knee joint aspiration. Follow-up fluid cell count differential, fluid culture and crystals. Continue with home medications and follow up closely. ID will be consulted. Time with Patient: Greater than 30
[2020-09-13] MEDS: carvediloL 12.5 MG TAB PO SCH ×2 (08:02→16:47)
[2020-09-13] MEDS: VANCOMYCIN 1,500 MG in SODIUM CHLORIDE 0.9% 250 ML IVPB SCH ×2 (08:02→21:47)
[2020-09-13] MEDS: HEPARIN SODIUM,PORCINE/PF 5,000 UNIT/0.5 ML SYRINGE SQ SCH ×2 (08:02→21:47)
[2020-09-13] MEDS: PANTOPRAZOLE 40 MG TABLET PO SCH (08:03)
--- NOTE | 2020-09-13 08:19 | CONS ---
CONSULTATION DATE OF SERVICE: 09/12/2020 REASON FOR CONSULTATION: Right knee septic arthritis. HISTORY OF PRESENT ILLNESS: The patient is an 84-year-old male presenting to [facility] ER for evaluation of right knee pain and swelling. The patient's symptoms have been going on for about a week. The patient denies having any history of any trauma or fall. The patient did have a gradual worsening of his right knee pain and described the pain to be more of a throbbing to dull aching with intensity almost 7 to 8/10. The patient did have locking of his knee and was not able to move his knee and that concerned him. He also had some chills. With these symptoms, the patient presented to the hospital. On arrival to the ER, the patient did have fever of 101 degrees Fahrenheit. The patient was evaluated by the ER physician. The patient did have a right knee arthrocentesis done. The fluid was cloudy. However, the white count was only 2600. The patient has been started on vancomycin and Zosyn. The patient was admitted to the hospital. Infectious Disease was consulted for further management of antibiotic therapy. The patient apparently recently did have a right shoulder surgery and apparently seems to have infection after the surgery, which has been treated with oral antibiotic in the form of clindamycin and rifampin. The patient is not sure about the name of the pathogen that was aspirated from his right shoulder area, as the surgery was done outside of this facility and the patient is concerned that he may have the same infection from the right shoulder to the right knee area. REVIEW OF SYSTEMS: Positive points have been mentioned in HPI. Rest of systems are negative. PAST MEDICAL HISTORY: Hypertension, hyperlipidemia, prostate disorder, history of kidney stone, recent right shoulder surgery followed by infection. PAST SURGICAL HISTORY: Appendectomy and right shoulder surgery. SOCIAL HISTORY: The patient did have a remote history of smoking. No drinking or drug use. FAMILY HISTORY: Son with history of Hodgkin lymphoma. ALLERGIES: No known drug allergies. MEDICATIONS: Currently include the patient is on Zosyn, vancomycin, Tylenol, Norvasc, Coreg, Flexeril, Valium, Aricept, Dilaudid, Antivert, Narcan Zofran, Protonix, prednisone, Flomax. PHYSICAL EXAMINATION: VITAL SIGNS: Blood pressure is 162/84 with a pulse of 96, temperature of 98.8, T-max is 101 degrees Fahrenheit. The patient is 95% on room air. GENERAL DESCRIPTION: Patient is an elderly male lying in bed in no distress. No tachypnea or accessory muscles of respiration use. HEENT: Examination shows no pallor or scleral icterus. Oral mucous membrane is dry. NECK: Trachea central, no thyromegaly. LUNGS: Unlabored breathing, clear to auscultation anteriorly. No wheeze or crackle. HEART: S1-S2, regular rate and rhythm. ABDOMEN: Soft, no tenderness. No guarding or rigidity. EXTREMITIES: No edema of the feet. The right knee has some swelling, minimal warmth and tenderness. No open wound or any drainage. NEUROLOGICAL: Patient is awake, alert, oriented times three. Mood and affect normal. LABS: Hemoglobin is 14.5, white count 9.5, BUN of 21, creatinine 1.10. Electrolytes have been normal. Liver enzymes are normal. CRP is 6.3. Urine is negative. The right knee fluid was cloudy with 2680 WBC, 61% PMN, protein is 3300. X-rays was negative for infection. Ultrasound was negative for any DVT. DIAGNOSTIC IMPRESSION: Patient presented to hospital with right knee pain of one-day duration with no history of any trauma in this patient who did have a fever that is slightly concerning and also has a history of right shoulder infection after surgery, though the right knee aspirate did not look infected and the white count is only 2600. However, in view of his fever and recent right shoulder surgery infection are concerning and will need to cover with antibiotic while waiting for the culture to finalize. PLAN: 1. We will continue the patient on vancomycin, Pharmacy to dose target of 15, however discontinue Zosyn to decrease risk of nephrotoxicity. 2. Gentle IV fluid. 3. We will follow on his clinical condition and culture to further adjust medication if needed. Thank you for this consultation. Will follow this patient along with you. MMODL / IJN: [id number] /
--- NOTE | 2020-09-13 10:09 | P.PN ---
Progress Note - Text Progress Note Date: 09/13/20 The patient is seen and examined at bedside. I reviewed his H&P and I reviewed his history with the patient as well. His swelling in his right knee seems to be improving today and there is no erythema. He still has significant pain and difficulty with mobilization and ambulation. He is not having any significant fevers. His cultures are negative thus far. He had negative white count.. No injury to his knee and had denies any history of gout He had infection in his right shoulder after surgery with another facility in July. He says that seems to be improving but is not happy with the treatment. He was started on antibiotics yesterday and has been on oral prednisone in the evenings. He feels his left knee may be starting to swell as well. overnight temperature and 100.2 His white count was 9 and his cell count and his knee aspirated were only less than 3000 x-rays show severe degenerative osteoarthritis at the right knee with no evidence of obvious fracture At his knee he has significant swelling there is no erythema. He is diffusely tender over his anterior knee. His calves and thighs are soft nontender. He does not have severe pain with gentle small range of motion. He has no pain with passive stretch. His garments are soft. His left knee there is mild effusion without erythema. He has good strength and motion in his left knee. Assessment and plan Acute right knee pain and swelling, of uncertain etiology Right knee osteoarthritis inability to ambulate to his right knee Recent history of right shoulder surgery with postoperative infection and outside facility in July At this point is still difficult to completely rule out the possibly of infection however his white count was negative as is his cell count and his aspirate. He is continuing his antibiotics as per infectious disease and I think that is appropriate. He is on oral steroid and if this is a gouty flareup for reactive synovitis then I think the steroid could be helpful for him. There does not appear to be obvious instability at his knee and I think that is okay for him to weight-bear as tolerated on the right leg and he may have some benefit with physical therapy for increasing his activity and mobilization weightbearing as tolerated I do not have acute plans for surgical intervention today and it is okay for the patient to have a regular diet. If his cultures come back different or if his knee were to worsen we would consider possibly of intervention but we do not plan surgery at this point.
[2020-09-13] MEDS ORDERED: methylPREDNISolone SOD SUCCI 125 MG/2 ML VIAL IV SCH (10:15)
[2020-09-13] MEDS: allopurinoL 100 MG TAB PO SCH (12:13)
[2020-09-13] MEDS: diphenhydrAMINE 25 MG CAP PO PRN ×2 (12:13→21:50)
[2020-09-13] MEDS: HYDROcodone/APAP 5-325MG 1 EACH TAB PO PRN ×2 (16:47→21:49)
[2020-09-13] MEDS: predniSONE 20 MG TAB PO SCH (16:47)
[2020-09-13] MEDS: DONEPEZIL 10 MG TAB PO SCH (21:47)
[2020-09-13] MEDS: CYCLOBENZAPRINE 10 MG TAB PO PRN (21:48)
[2020-09-13] MEDS: amLODIPine 5 MG TAB PO SCH (21:50)
[2020-09-13] MEDS: TAMSULOSIN 0.4 MG CAP.ER.24H PO SCH (21:50)
[2020-09-13] MEDS: diazePAM 5 MG TAB PO PRN (21:50)
--- NOTE | 2020-09-13 23:11 | PN ---
PROGRESS NOTE DATE OF SERVICE: 09/13/2020. REASON FOR FOLLOWUP: Right knee pain, concern for versus gouty arthritis. INTERVAL HISTORY: Patient is afebrile. The patient is breathing comfortably. Denies having any chest pain, shortness of breath or cough. Still complaining of pain in the right knee area. No worsening abdominal pain. No diarrhea. PHYSICAL EXAMINATION: Blood pressure 117/79, pulse 70. Temperature 99.3. He is 95% on room air. General description is an elderly male lying in in no distress. Respiratory system: Unlabored breathing, clear to auscultation anteriorly. Heart S1, S2. Regular rate and rhythm. Abdomen soft. No tenderness. Right knee did have swelling. No significant redness or drainage. LABS: Hemoglobin 14.5, white count 9.5, BUN of 21, creatinine is 1.10. The culture so far negative. The knee aspirate positive for . DIAGNOSTIC IMPRESSION AND PLAN: The patient admitted to the hospital with fever, acute pain to the right knee, likely arthritis. The patient will be started however any acute attacks treatment should be mostly steroid and an inflammatory such as Colchicine rather than discussed with admitting team. The patient is on vancomycin to discontinue if the culture remains to be negative by tomorrow. MMODL / IJN: [id number] /
[2020-09-14] MEDS: carvediloL 12.5 MG TAB PO SCH (07:58)
[2020-09-14] MEDS: HYDROcodone/APAP 5-325MG 1 EACH TAB PO PRN ×2 (07:58→13:52)
[2020-09-14] MEDS: predniSONE 20 MG TAB PO SCH (07:58)
[2020-09-14] MEDS: PANTOPRAZOLE 40 MG TABLET PO SCH (07:58)
[2020-09-14] MEDS: allopurinoL 100 MG TAB PO SCH (07:58)
[2020-09-14] MEDS: diazePAM 5 MG TAB PO PRN (07:58)
[2020-09-14] MEDS: HEPARIN SODIUM,PORCINE/PF 5,000 UNIT/0.5 ML SYRINGE SQ SCH (07:59)
[2020-09-14 08:00] VITALS: RESP 16
[2020-09-14] MEDS: diphenhydrAMINE 25 MG CAP PO PRN (08:00)
[2020-09-14] MEDS: SODIUM CHLORIDE 0.9% 1,000 ML IV SCH ×3 (08:03→12:39)
--- NOTE | 2020-09-14 08:41 | P.PN ---
Progress Note - Text Progress Note Date: 09/14/20 Orthopedics: History of present illness: Patient is a pleasant 84-year-old male who is seen and examined for follow-up evaluation for his right knee. He's had severe pain and swelling in his right knee since Thursday. He states the pain and swelling has improved today as compared Thursday. He states he has not been ambulating on his right lower extremity. He has a external catheter in place due to his non-ambulation status however he is weightbearing as tolerated on the right lower extremity. He had been unable to weight-bear due to his pain. He continues to be seen and examined by multiple medical providers including medicine and infectious disease. Synovial fluid in his right knee show some crystals which would suggest gouty attack. He was started on allopurinol. Infectious disease states they will plan to continue with prednisone and may transition the patient to colchicine. Patient continues to be on vancomycin. If the patient's cultures finalize and are negative, infectious disease will plan to discontinue IV antibiotic medication. Patient is known to have osteoarthritis of his right knee. He also has a recent history of right shoulder surgery with a postoperative infection performed at outside facility in July 2020. We did discuss at the bedside he would be allowed to weight-bear as tolerated on his right lower extremity and could benefit from working with physical therapy to increase his mobility and ambulation. Patient's other medical diagnoses include hyperlipidemia, hypertension, and prostate disorder. Physical Exam: Patient is awake, alert, and oriented 3 Vital signs stable Good chest excursion with deep inspiration and expiration Abdomen soft nontender No signs or symptoms of DVT; no calf pain Examination of the right knee does show some diffuse swelling over his superior anterior knee without any significant erythema Some pain with palpation at the right lateral joint line No significant pain with palpation over the patella or medial joint line He is able to perform some gentle range of motion of the right knee but is unable to fully flex the right knee Currently no significant swelling at the left knee Extensor hallucis longus, plantarflexion, and dorsiflexion positive sustained on the right No pain with palpation over the right thigh Assessment: Acute right knee pain and swelling Suspected gouty attack of the right knee Right knee osteoarthritis Inability ambulate due to right knee Recent history of right shoulder surgery with postoperative infection with surgical intervention performed in outside facility in July 2020 Hyperlipidemia Hypertension Prostate disorder Plan: 1. Synovial fluid from the right knee did show evidence of some crystals. Patient was initially started on allopurinol. Patient has been seen and examined by Dr. Solis in infectious disease. Patient has also been discussed in detail this morning with medicine. Per recommendations from infectious disease, patient may be transitioned to colchicine. Patient will also plan to continue with IV antibiotics with vancomycin per infectious disease. If cultures are finalized today and are negative for infection, infectious disease will plan to discontinue the vancomycin. We did discuss we are not currently planning for surgical intervention at his right knee. He does continue to have some diffuse swelling at the right knee most significant over the superior anterior knee. He does not have evidence of erythema. He is able to perform some gentle range of motion of the right knee today. We did discuss if his symptoms are stemming specifically from an acute gouty attack, treatment would be to continue with medication including prednisone and anti-inflammatory medication with transition from allopurinol to colchicine. If his cultures were to come back positive in regards to his right knee, he plan to continue with antibiotic medications as prescribed and recommended by infectious disease. We are not currently planning for acute surgical intervention in regards to his right knee. Patient states at the bedside he would like to avoid surgical intervention if he is able to do so. We did discuss he may weight-bear as tolerated on the right lower extremity. He may work with physical therapy and increase his mobility and ambulation. We'll continue to follow patient closely during his admission. We did discuss if he was clear for discharge by multiple other medical providers including medicine and infectious disease, patient will be cleared for discharge from orthopedic standpoint. Following discharge,Patient may follow-up with Sukhjinder Rojo PA-C or Dr. Speedy Rodríguez at [facility] in 1-2 weeks following discharge. 2. Patient will continue to be seen and examined by multiple other medical providers including medicine and infectious disease.
[2020-09-14 08:49] LABS: African American GFR (CKD) 90 (>60 ml/min/1.73 sqM); Anion Gap 3 mmol/L; Blood Urea Nitrogen 16 mg/dL (9-20); Calcium 8.5 mg/dL (8.4-10.2); Carbon Dioxide 27 mmol/L (22-30); Chloride 106 mmol/L (98-107); Glucose 80 mg/dL (74-99); Non-African American GFR(CKD) 78 (>60 ml/min/1.73 sqM); Potassium 3.8 mmol/L (3.5-5.1); Sodium 136 mmol/L (137-145)
[2020-09-14] MEDS ORDERED: COLCHICINE 0.6 MG EACH PO SCH (09:30)
--- NOTE | 2020-09-14 11:10 | P.CONS ---
History of Present Illness - Chief Complaint Medical debility - History of Present Illness I had the opportunity to see patient for inpatient rehab consultation with regard to medical debility. He was admitted to [facility] on September 12. Patient reports recent right shoulder surgery and that the arm became swollen after discharge for this. Admission H&P and orthopedic consultation indicate patient actually complains of pain in left knee. Workup consistent with severe arthritis and a patellar bursitis. Venous Doppler negative. Chest x-ray demonstrates minimal right basilar opacity. OT reports minimal assistance for upper dressing and bathing and maximal assistance for lower dressing and toileting and moderate assistance for transfers. OT reports 48 feet with roller walker. Previous functional history as elicited from patient: 85-year-old right-handed white male who is lives in first floor to form with . does cooking, laundry, driving. Patient really and are retired. He describes it is independent with driving up until one month ago, the surgery. He is independent with standing shower and gait without device. PCP Dr. Brock. Denies tobacco or alcohol. Review of Systems Review of systems: ENT: Denies sneezes or discharge. Eyes: Denies discharge or photophobia. Cardiac: Denies chest pain or palpitation. Pulmonary: Denies cough or shortness of breath. Breast: Denies discharge or lumps. Gastrointestinal: Denies nausea, emesis, constipation, diarrhea. Genitourinary: Denies discharge or frequency. Musculoskeletal: Discomfort both shoulders and knees. Neurologic: Denies motor or sensory change. Endocrine: Denies shakes or sweats. Oncology: Denies cancers. Dermatologic: Denies rash, itching, pruritus. ALLERGY/immunology: Denies sneezes, rashes. Past Medical History Past Medical History: Hyperlipidemia, Hypertension, Prostate Disorder History of Any Multi-Drug Resistant Organisms: None Reported Past Surgical History: Appendectomy Additional Past Surgical History / Comment(s): KIDNEY STONE SURGERY Past Anesthesia/Blood Transfusion Reactions: No Reported Reaction Past Psychological History: No Psychological Hx Reported Smoking Status: Former smoker Past Alcohol Use History: None Reported Past Drug Use History: None Reported - Past Family History Son(s) Family Medical History: Cancer Additional Family Medical History / Comment(s): hodgkins Medications and Allergies Home Medications Medication Instructions Recorded Confirmed Type Cyclobenzaprine [Flexeril] 10 mg PO HS PRN 11/10/19 09/12/20 History Rosuvastatin [Crestor] 10 mg PO HS 11/10/19 09/12/20 History Tamsulosin [Flomax] 0.8 mg PO HS 11/10/19 09/12/20 History predniSONE 10 mg PO HS 11/10/19 09/12/20 History Meclizine [Antivert] 25 mg PO HS 03/19/20 09/12/20 History Meloxicam 15 mg PO HS 03/19/20 09/12/20 History Metoprolol Tartrate [Lopressor] 12.5 mg PO HS 03/19/20 09/12/20 History amLODIPine [Norvasc] 5 mg PO HS 03/19/20 09/12/20 History Carvedilol [Coreg] 25 mg PO BID 09/12/20 09/12/20 History Diazepam [Valium] 5 mg PO TID PRN 09/12/20 09/12/20 History Donepezil [Aricept] 20 mg PO HS 09/12/20 09/12/20 History clindamycin HCL [Cleocin] 300 mg PO BID 09/12/20 09/12/20 History rifAMPin [Rifampin] 300 mg PO BID 09/12/20 09/12/20 History Allergies Allergy/AdvReac Type Severity Reaction Status Date / Time No Known Allergies Allergy Verified 09/12/20 15:08 Physical Exam Vitals: Vital Signs Temp Pulse Resp BP Pulse Ox 09/14/20 08:00 98.9 F 75 16 141/70 95 09/13/20 20:00 73 15 09/13/20 19:09 99.3 F 73 15 163/79 95 09/13/20 14:00 98.6 F 82 16 187/91 95 Intake and Output 09/13/20 09/14/20 09/14/20 22:59 06:59 14:59 Intake Total 2050 Output Total 600 Balance 1450 Intake: Intake, IV Titration 1810 Amount Sodium Chloride 0.9% 1, 1560 000 ml @ 130 mls/hr IV . Q7H42M [facility] Rx#:[id number] Vancomycin 1,500 mg In 250 Sodium Chloride 0.9% 250 ml @ 125 mls/hr IVPB Q16H [facility] Rx#:[id number] Oral 240 Output: Urine 600 Other: Voiding Method External Catheter Skin: Atrophic, intact. General: Medium build and comfortable appearance. Head: Normocephalic, atraumatic. Eyes: Symmetric. Pupils equal round. Ears: Symmetric. Hearing within normal limits. Mouth: Clear. Neck: Supple. Carotid without bruit. Cardiac: Regular rate and rhythm. Lungs: Clear anteriorly and posteriorly. Abdomen: Soft active nontender. Extremities: Normal tone. Joints arthritic but do not appear to have a effusion per this examiner. Neurological: Mental status: Alert, cooperative, pleasant. Cranial nerves: Symmetric facial tone and trapezius. Motor: Active movement all 4 limbs including elevation off of bed. Sensation: Intact throughout. DTRs: Symmetric and equal throughout. Mobility: Did not attempt to sit or stand on my own. Results CBC & Chem 7: 09/12/20 11:42 09/14/20 07:34 Labs: Abnormal Lab Results - Last 24 Hours (Table) 09/14/20 Range/Units 07:34 Sodium 136 L (137-145) mmol/L Microbiology - Last 24 Hours (Table) 09/13/20 06:10 Blood Culture - Preliminary Blood No Growth after 24 hours 09/12/20 11:42 Blood Culture - Preliminary Blood No Growth after 24 hours 09/12/20 11:42 Blood Culture - Preliminary Blood No Growth after 24 hours 09/12/20 14:29 Gram Stain - Preliminary Knee - Right Body Fluid Culture - Preliminary Assessment and Plan (1) Sepsis Current Visit: No Status: Acute Code(s): A41.9 - SEPSIS, UNSPECIFIED ORGANISM SNOMED Code(s): 96529787 Plan: Impression: 1. Medical debility. 2. Septic arthritis with complaints of pain both shoulders and knees. 3. Hypertension. 4. Dyslipidemia. 5. BPH. Comments and plan: At this time OT ongoing PT prescribed. We'll follow therapy notes with yourself but do not anticipate transfer to rehab prior to next Thursday for lack of information,PT note. Further, patient's hope is to be discharged to home with home support services.
[2020-09-14 12:33] LABS: Basophils # (A) 0.02 X 10*3/uL (0.00-0.10); Basophils % (A) 0.3 %; Eosinophils # (A) 0.04 X 10*3/uL (0.04-0.35); Eosinophils % (A) 0.6 %; HCT 36.2 % (39.6-50.0); HGB 11.6 g/dL (13.0-17.0); Lymphocytes % (A) 15.2 %; MCV 90.5 fL (80.0-97.0); Monocytes # (A) 0.78 X 10*3/uL (0.20-1.00); Monocytes % (A) 11.9 %; Neutrophils # (A) 4.71 X 10*3/uL (1.80-7.70); Neutrophils % (A) 71.8 %; Platelet Count 128 X 10*3/uL (140-440); RDW 13.1 % (11.5-14.5); WBC 6.56 X 10*3/uL (4.50-10.00)
--- NOTE | 2020-09-14 14:23 | P.PN ---
Subjective Progress Note Date: 09/13/20 Principal diagnosis: Right knee gouty arthritis. Patient is a 84-year-old male with a known history of hypertension, hyperlipidemia, BPH and recent history of right shoulder surgery on July 19 presents to ER with complaints of right knee pain and swelling. Patient says that he has been having right knee increased swelling over the last weekend and gradually getting worse. Patient presented ER for evolution. Patient was tachycardic and febrile with T-max 101.1 on admission. Pulse ox 97% on room air. Denied any complaints of chest pain or shortness of breath. No cough or sputum production. No nausea vomiting or abdominal pain or diarrhea. Denied any weakness in the leg. No drainage. Patient says that she did have infection following the right shoulder surgery and underwent I&D and antibiotic course. Laboratory data showed pelvis and 9.5 hemoglobin 42.0 and platelets 151 BUN 21 and 1.1 CRP 6.3 and total protein 5.8, all living 3.4 UA negative for infection Chest x-ray showed minimal right basilar opacity compatible with atelectasis. X-ray of the right knee showed severe osteoarthritis with complete loss of joint space involving the medial compartment of the knee. Large suprapatellar bursal fluid collection.. 09/13/2020 Patient is currently awake alert. Afebrile overnight. Continued on antibiotics in the form of vancomycin. Otherwise fluid analysis from the right knee aspiration showed crystals. Patient will be started on prednisone 40 mg daily and colchicine will be added. Knee swelling is better compared to yesterday. PT OT was consulted. Ortho and ID is on board. No complaints of nausea vomiting abdominal pain or diarrhea. No cough or sputum production. Current medications reviewed. Objective - Vital Signs Vital signs: Vital Signs Temp 98.4 F 09/13/20 07:45 Pulse 78 09/13/20 07:45 Resp 16 09/13/20 07:45 BP 171/85 09/13/20 07:45 Pulse Ox 94 L 09/13/20 07:45 Intake & Output 09/12/20 09/13/20 09/13/20 18:59 06:59 18:59 Intake Total 240 Output Total 200 Balance 40 Weight 81.647 kg Intake: Oral 240 Output: Urine 200 Other: # Voids 1 - Exam PHYSICAL EXAMINATION: Patient is lying in the bed comfortably, no acute distress, awake alert and oriented.. HEENT: Normocephalic. Neck is supple. Pupils reactive. Nostrils clear. Oral cavity is moist. Neck reveals no JVD, carotid bruits, or thyromegaly. CHEST EXAMINATION: Trachea is central. Symmetrical expansion. Bibasilar diminished sounds, Lung zapien clear to auscultation and percussion. CARDIAC: Normal S1, S2 with no gallops. No murmurs ABDOMEN: Soft. Bowel sounds normal. No organomegaly. No abdominal bruits. Extremities: reveal no edema. No clubbing or cyanosis Neurologically awake, alert, oriented x3 with well-coordinated movements. No focal deficits noted Skin: No rash or skin lesions. Psychiatric: Coperative. Nonsuicidal Musculoskeletal: Patient does have right knee joint effusion, Mild tenderness and warm.... - Labs CBC & Chem 7: 09/14/20 07:34 09/14/20 07:34 Labs: Abnormal Lab Results - Last 24 Hours (Table) 09/12/20 09/12/20 09/12/20 Range/Units 11:42 14:29 14:29 BUN 21 H (9-20) mg/dL Glucose 103 H (74-99) mg/dL C-Reactive Protein 6.3 H (<1.0) mg/dL Total Protein 5.8 L (6.3-8.2) g/dL Albumin 3.4 L (3.5-5.0) g/dL Urine Protein 1+ H (Negative) Urine Ketones 1+ H (Negative) Urine Blood Trace H (Negative) Urine Mucus Rare H (None) /hpf Synovial Crystals Seen A (None Seen) Microbiology - Last 24 Hours (Table) 09/12/20 14:29 Gram Stain - Preliminary Knee - Right Body Fluid Culture - Preliminary Assessment and Plan Assessment: Acute right knee gouty arthritis.. Status post aspiration. Possible septic arthritis with fever and tachycardia but no leukocytosis. Recent right shoulder surgery on 07/19/2020 followed by infection and I&D, statu s post antibiotic course. Hypertension Hyperlipidemia BPH DVT prophylaxis with heparin subcu Previous history of smoking Plan: Patient will be continued on pain management and antibiotics in the form of vancomycin. Cultures are negative so far. Prednisone dose increased to 40 mg daily and colchicine will be added. Orthopedic surgery and ID is on board. Follow-up uric acid level.
--- NOTE | 2020-09-14 14:30 | P.DS ---
Providers Date of admission: 09/12/20 14:31 Expected date of discharge: 09/14/20 Attending physician: Ovidio Chapin Consults: 09/12/20 14:31 Consult Physician Routine Consulting Provider: Elinor Solis Consult Reason/Comments: fever, suspect septic arthritis Do you want consulting provider notified?: Yes 09/12/20 14:32 Consult Physician Routine Consulting Provider: Elizabeth Rodríguez Consult Reason/Comments: knee pain, suspect septic arthritis Do you want consulting provider notified?: Already Contacted 09/14/20 09:52 Consult Physician Routine Consulting Provider: Talib Ramirez Consult Reason/Comments: IPR Do you want consulting provider notified?: Yes Primary care physician: [facility] Hospital Course: Discharge diagnosis Acute right knee gouty arthritis.. Status post aspiration. Suspected septic arthritis with fever and tachycardia but no leukocytosis.Chest negative. Antibiotics have been discontinued. Recent right shoulder surgery on 07/19/2020 followed by infection and I&D, status post antibiotic course. Hypertension Hyperlipidemia BPH DVT prophylaxis with heparin subcu Previous history of smoking Hospital course Patient is a 84-year-old male with a known history of hypertension, hyperlipidemia, BPH and recent history of right shoulder surgery on July 19 presents to ER with complaints of right knee pain and swelling. Patient says that he has been having right knee increased swelling over the last weekend and gradually getting worse. Patient presented ER for evolution. Patient was tachycardic and febrile with T-max 101.1 on admission. Pulse ox 97% on room air. Denied any complaints of chest pain or shortness of breath. No cough or sputum production. No nausea vomiting or abdominal pain or diarrhea. Denied any weakness in the leg. No drainage. Patient says that she did have infection following the right shoulder surgery and underwent I&D and antibiotic course. Laboratory data showed pelvis and 9.5 hemoglobin 42.0 and platelets 151 BUN 21 and 1.1 CRP 6.3 and total protein 5.8, all living 3.4 UA negative for infection Chest x-ray showed minimal right basilar opacity compatible with atelectasis. X-ray of the right knee showed severe osteoarthritis with complete loss of joint space involving the medial compartment of the knee. Large suprapatellar bursal fluid collection.. 09/13/2020 Patient is currently awake alert. Afebrile overnight. Continued on antibiotics in the form of vancomycin. Otherwise fluid analysis from the right knee aspiration showed crystals. [place] will be started on prednisone 40 mg daily and colchicine will be added. Knee swelling is better compared to yesterday. PT OT was consulted. Ortho and ID is on board. No complaints of nausea vomiting abdominal pain or diarrhea. No cough or sputum production. 09/14/2020 Patient was admitted to the hospital due to right knee joint effusion and fluid analysis showed crystals. Cultures have been negative. Antibiotics have been discontinued. Patient was started on prednisone and colchicine. Continue with prednisone quick taper in the next 5 to 7 days. Continue the colchicine and follow-up with orthopedic surgery in 2 weeks. Right knee joint swelling and pain and tenderness much improved. It is able to walk with physical therapy. He will be discharged to inpatient rehab. PHYSICAL EXAMINATION: Patient is lying in the bed comfortably, no acute distress, awake alert and oriented.. HEENT: Normocephalic. Neck is supple. Pupils reactive. Nostrils clear. Oral cavity is moist. Neck reveals no JVD, carotid bruits, or thyromegaly. CHEST EXAMINATION: Trachea is central. Symmetrical expansion. Bibasilar diminished sounds, Lung zapien clear to auscultation and percussion. CARDIAC: Normal S1, S2 with no gallops. No murmurs ABDOMEN: Soft. Bowel sounds normal. No organomegaly. No abdominal bruits. Extremities: reveal no edema. No clubbing or cyanosis Neurologically awake, alert, oriented x3 with well-coordinated movements. No focal deficits noted Skin: No rash or skin lesions. Psychiatric: Coperative. Nonsuicidal Musculoskeletal: Patient does have right knee joint Minimal joint effusion. Normal range of motion. Vital Signs 09/14/20 08:00 Temperature 98.9 F Pulse Rate [ 75 Pulse Oximetery ] Respiratory 16 Rate Blood Pressure 141/70 [Right Arm] O2 Sat by Pulse 95 Oximetry Time taken greater than 35 minutes in patient care out of which more than 50% was spent on counseling and coordination of care. Plan - Discharge Summary Discharge Rx Participant: No New Discharge Prescriptions: New Colchicine [Colcrys] 0.6 mg PO DAILY #5 each predniSONE [Deltasone] See Taper PO DAILY #10 tab Continue Tamsulosin [Flomax] 0.8 mg PO HS Rosuvastatin [Crestor] 10 mg PO HS Cyclobenzaprine [Flexeril] 10 mg PO HS PRN PRN Reason: Muscle Spasm Meloxicam 15 mg PO HS Meclizine [Antivert] 25 mg PO HS amLODIPine [Norvasc] 5 mg PO HS Metoprolol Tartrate [Lopressor] 12.5 mg PO HS clindamycin HCL [Cleocin] 300 mg PO BID Diazepam [Valium] 5 mg PO TID PRN PRN Reason: Anxiety Donepezil [Aricept] 20 mg PO HS rifAMPin [Rifampin] 300 mg PO BID Carvedilol [Coreg] 25 mg PO BID Discontinued predniSONE 10 mg PO HS Discharge Medication List Cyclobenzaprine [Flexeril] 10 mg PO HS PRN 11/10/19 [History] Rosuvastatin [Crestor] 10 mg PO HS 11/10/19 [History] Tamsulosin [Flomax] 0.8 mg PO HS 11/10/19 [History] Meclizine [Antivert] 25 mg PO HS 03/19/20 [History] Meloxicam 15 mg PO HS 03/19/20 [History] Metoprolol Tartrate [Lopressor] 12.5 mg PO HS 03/19/20 [History] amLODIPine [Norvasc] 5 mg PO HS 03/19/20 [History] Carvedilol [Coreg] 25 mg PO BID 09/12/20 [History] Diazepam [Valium] 5 mg PO TID PRN 09/12/20 [History] Donepezil [Aricept] 20 mg PO HS 09/12/20 [History] clindamycin HCL [Cleocin] 300 mg PO BID 09/12/20 [History] rifAMPin [Rifampin] 300 mg PO BID 09/12/20 [History] Colchicine [Colcrys] 0.6 mg PO DAILY #5 each 09/14/20 [Rx] predniSONE [Deltasone] See Taper PO DAILY #10 tab 09/14/20 [Rx] Follow up Appointment(s)/Referral(s): Elizabeth Rodríguez DO [Doctor of Osteopathic Medicine] - 2 Weeks Manpreet Brock MD [Primary Care Provider] - 1-2 days Discharge Disposition: TRANSFER TO SNF/ECF
[2020-09-14] MEDS: VANCOMYCIN 1,500 MG in SODIUM CHLORIDE 0.9% 250 ML IVPB SCH (14:40)
[2020-09-14 15:40] VITALS: BP 152/82; PULSE 80; TEMP 98.2
--- NOTE | 2020-09-14 16:54 | PN ---
PROGRESS NOTE DATE OF SERVICE: 09/14/2020 REASON FOR FOLLOWUP: Right knee pain and question of septic arthritis. INTERVAL HISTORY: The patient is currently afebrile. Patient is breathing comfortably. The patient right knee pain and swelling has improved. Denies any chest pain, shortness of breath, cough, no abdominal pain or diarrhea. PHYSICAL EXAMINATION: Blood pressure 141/70 with a pulse of 75, temperature 98.9. He is 95% on room air. General description is an elderly male lying in bed in no distress. Respiratory system: Unlabored breathing, clear to auscultation anteriorly. Heart S1, S2. Regular rate and rhythm. Abdomen soft, no tenderness. Right knee did have some swelling. No redness. No drainage. LABS: Hemoglobin 9.1, white count 6.5, BUN of 16, creatinine 0.90. Cultures have been negative. DIAGNOSTIC IMPRESSION AND PLAN: Patient with right knee pain more likely gouty arthritis. Clinically not behaving as septic arthritis. Vancomycin will be discontinued. course per admitting and orthopedics and close outpatient followup. MMODL / IJN: [id number] /
[2020-09-15] MEDS ORDERED: VANCOMYCIN TROUGH DUE 1 EACH MISC MISCELLANE ONE (06:00)
== END 2020-09-14 17:08 | DRG 554 ==
LOC: EC 10:48 → 4SSUR 14:31
PROVIDERS: ADMIT Internal Medicine; ATTEND Internal Medicine
PROC: 0S9C3ZX Drainage of Right Knee Joint, Percutaneous Approach, Diagnostic (ICD-10-PCS; principal; 2020-09-12)
DX: M10.9 Gout, unspecified (principal); E78.5 Hyperlipidemia, unspecified; I10 Essential (primary) hypertension; M25.561 Pain in right knee; N42.9 Disorder of prostate, unspecified; M17.11 Unilateral primary osteoarthritis, right knee; Z20.822 Contact with and (suspected) exposure to COVID-19; N40.0 Benign prostatic hyperplasia without lower urinary tract symptoms; Z90.49 Acquired absence of other specified parts of digestive tract; Z87.442 Personal history of urinary calculi; Z87.891 Personal history of nicotine dependence; Z79.899 Other long term (current) drug therapy; Z80.7 Family history of other malignant neoplasms of lymphoid, hematopoietic and related tissues; F12.90 Cannabis use, unspecified, uncomplicated
CPT/HCPCS: 20610; 36415; 71046; 80048; 80053; 81001; 82565; 82945; 83605; 83615; 84157; 84550; 85025; 85610; 85652; 85730; 86140; 87040; 87070; 87205; 87635; 89050; 89060; 96374; 96375; 99285

== ENCOUNTER 2023-07-03 14:02 | Inpatient (IN) | payer MEDICARE, OTHER ==
[2023-07-03] MEDS: MORPHINE SULFATE 4 MG/ML SYRINGE IV STA (15:20)
[2023-07-03 16:05] LABS: Appearance,Urine Clear (Clear); Basophils % (A) 0 %; Bilirubin,Urine Negative (Negative); Blood,Urine Negative (Negative); Color,Urine Light Yellow; Eosinophils # (A) 0.1 k/uL (0-0.7); Eosinophils % (A) 1 %; Glucose,Urine (UA) Negative (Negative); HCT 40.2 % (39.0-53.0); HGB 13.4 gm/dL (13.0-17.5); Ketones,Urine Negative (Negative); Leukocyte Esterase,Urine Negative (Negative); Lymphocytes % (A) 12 %; MCH 29.8 pg (25.0-35.0); MCHC 33.4 g/dL (31.0-37.0); MCV 89.3 fL (80.0-100.0); Mean Platelet Volume 7.8; Monocytes # (A) 0.4 k/uL (0-1.0); Monocytes % (A) 5 %; Neutrophils # (A) 6.6 k/uL (1.3-7.7); Neutrophils % (A) 80 %; Nitrite,Urine Negative (Negative); PH, Urine 5.5 (5.0-8.0); Platelet Count 115 k/uL (150-450); Protein,Urine Trace (Negative); RDW 13.6 % (11.5-15.5); Specific Gravity,Urine 1.017 (1.001-1.035); Urobilinogen,Urine <2.0 mg/dL (<2.0); WBC 8.2 k/uL (3.8-10.6)
[2023-07-03 16:15] LABS: Prothrombin Time 11.3 sec (10.0-12.5)
--- NOTE | 2023-07-03 16:16 | XR ---
EXAMINATION TYPE: XR wrist complete LT, XR Hip 2 views LT and AP Pelvis DATE OF EXAM: 07/03/2023 COMPARISON: NONE HISTORY: 87-year-old male fall, injury, pain FINDINGS: Left wrist: There is end-stage degenerative change of the radiocarpal joint with [id number] articulation. Dimin utive in chronically eroded appearance to both the proximal scaphoid and lunate bones. Severe degener ative change also present at the ulnar lunate joint suggesting torn TFCC. Severe degenerative change at the base of the thumb. Large subchondral geode within the distal radius measuring 1.3 cm. Severe d egenerative change distal radioulnar joint. Degenerative joint space narrowing with joint subluxation fifth MCP joint. Pelvis and left hip: Mild degenerative axial joint space narrowing in both hips. There is a subcapital left femoral neck f racture with mild proximal migration of the femur. SI joints appear symmetric and intact. Pubic symph ysis is intact. IMPRESSION: Left wrist: 1. 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 2. 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 3. Suspect chronic joint subluxation fifth MCP joint. Pelvis and left hip: 4. Mildly displaced subcapital left femoral neck fracture.
[2023-07-03] MEDS: HYDROmorphone 1 MG/ML 1 ML SYRINGE IVP STA (16:23)
[2023-07-03 16:26] LABS: ALT 19 U/L (4-49); AST 31 U/L (17-59); African American GFR (CKD) >90 (>60 ml/min/1.73 sqM); Alkaline Phosphatase 103 U/L (38-126); Anion Gap 8 mmol/L; Blood Urea Nitrogen 18 mg/dL (9-20); Calcium 9.2 mg/dL (8.4-10.2); Carbon Dioxide 21 mmol/L (22-30); Chloride 101 mmol/L (98-107); Glucose 101 mg/dL (74-99); Non-African American GFR(CKD) 79 (>60 ml/min/1.73 sqM); Potassium 4.1 mmol/L (3.5-5.1); Sodium 130 mmol/L (137-145); Total Bilirubin 0.5 mg/dL (0.2-1.3); Total Protein 6.6 g/dL (6.3-8.2)
--- NOTE | 2023-07-03 16:27 | XR ---
EXAMINATION TYPE: XR chest 1V DATE OF EXAM: 07/03/2023 COMPARISON: 09/12/2020 HISTORY: 87-year-old male presurgical evaluation TECHNIQUE: Single frontal view of the chest is obtained. FINDINGS: Bilateral breast total shoulder arthroplasties. Mild cardiomegaly. Interstitial prominence without consolidation or pleural effusion. IMPRESSION: Mild cardiomegaly. Interstitial prominence may be technical due to portable technique an d positioning or could reflect mild pulmonary vascular congestion. Correlate with symptoms.
--- NOTE | 2023-07-03 16:33 | ED ---
Fall HPI - General Chief Complaint: Fall Stated Complaint: L hip injury - pos fracture Time Seen by Provider: 07/03/23 14:57 Source: patient, EMS Mode of arrival: EMS - History of Present Illness Initial Comments: This patient is an 87-year-old man who presents after having ground-level fall. He states that there is some uneven concrete he was walking and tripped over this. He states that he is experiencing sharp left hip/groin pain. He was not able to stand or bear any weight on his left leg. The patient states that he also struck his left wrist. He denies other injuries. He did not hit his head or neck. No loss consciousness. No chest, back, abdomen pain. 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: yes, by family Place Fall Occurred: home Loss of Consciousness: none Prolonged Down Time?: no Symptoms Prior to Fall: none Severity: moderate Quality: sharp Context: tripped/slipped - Related Data Home Medications Medication Instructions Recorded Confirmed Rosuvastatin [Crestor] 10 mg PO HS 11/10/19 07/03/23 Tamsulosin [Flomax] 0.8 mg PO HS 11/10/19 07/03/23 Doxazosin [Cardura] 4 mg PO DAILY 07/03/23 07/03/23 Linaclotide [Linzess] 145 mcg PO DAILY 07/03/23 07/03/23 Losartan [Cozaar] 50 mg PO DAILY 07/03/23 07/03/23 Memantine [Namenda] 5 mg PO DAILY 07/03/23 07/03/23 Omeprazole 40 mg PO DAILY 07/03/23 07/03/23 QUEtiapine [SEROquel] 50 mg PO HS 07/03/23 07/03/23 Trospium Chloride 20 mg PO DAILY 07/03/23 07/03/23 carvediloL [Coreg] 6.25 mg PO BID 07/03/23 07/03/23 traZODone HCL [Desyrel] 50 mg PO HS 07/03/23 07/03/23 Previous Rx's Medication Instructions Recorded Aspirin 81 mg PO BID #60 tab 07/04/23 Docusate [Colace] 100 mg PO BID #28 capsule 07/04/23 Omeprazole 40 mg PO DAILY #30 cap 07/04/23 Acetaminophen Tab [Tylenol] 650 mg PO Q6HR PRN tab 07/07/23 Ferrous Sulfate [Feosol] 325 mg PO BID #1 tab 07/07/23 Allergies Allergy/AdvReac Type Severity Reaction Status Date / Time No Known Allergies Allergy Verified 07/03/23 14:14 Review of Systems ROS Statement: Those systems with pertinent positive or pertinent negative responses have been documented in the HPI. ROS Other: All systems not noted in ROS Statement are negative. Constitutional: Denies: fever, chills, weakness Respiratory: Denies: cough, dyspnea Cardiovascular: Denies: chest pain, palpitations, edema Gastrointestinal: Denies: abdominal pain, nausea, vomiting, diarrhea Genitourinary: Denies: dysuria, hematuria Musculoskeletal: Reports: as per HPI, arthralgia Skin: Denies: rash Neurological: Denies: headache, weakness, numbness Hematological/Lymphatic: Denies: easy bleeding Past Medical History Past Medical History: Hyperlipidemia, Hypertension, Prostate Disorder History of Any Multi-Drug Resistant Organisms: None Reported Past Surgical History: Appendectomy Additional Past Surgical History / Comment(s): KIDNEY STONE SURGERY Past Anesthesia/Blood Transfusion Reactions: No Reported Reaction Past Psychological History: No Psychological Hx Reported Smoking Status: Former smoker Past Alcohol Use History: None Reported Past Drug Use History: None Reported - Past Family History Son(s) Family Medical History: Cancer Additional Family Medical History / Comment(s): hodgkins General Exam Limitations: no limitations General appearance: alert, in no apparent distress Head exam: Present: atraumatic, normocephalic Eye exam: Present: normal appearance. Absent: scleral icterus, conjunctival injection Neck exam: Present: normal inspection, full ROM. Absent: tenderness Respiratory exam: Present: normal lung sounds bilaterally. Absent: respiratory distress, wheezes, rales, rhonchi, stridor, chest wall tenderness, accessory muscle use Cardiovascular Exam: Present: regular rate, normal rhythm, normal heart sounds. Absent: systolic murmur, diastolic murmur, rubs, gallop GI/Abdominal exam: Present: soft. Absent: distended, tenderness, guarding, rebound, rigid, mass Extremities exam: Present: tenderness, normal capillary refill. Absent: full ROM, pedal edema, calf tenderness Left Hip exam: Present: tenderness, external rotation. Absent: full ROM Knee exam: Present: normal inspection, full ROM. Absent: tenderness, swelling Lower Leg exam: Present: normal inspection, full ROM. Absent: tenderness, swelling Ankle exam: Present: normal inspection, full ROM. Absent: tenderness, swelling Foot/Toe exam: Present: normal inspection, full ROM. Absent: tenderness, swelling Neurovascular tendon exam: Present: abnormal cap refill. Absent: motor deficit, sensory deficit, tendon deficit Back exam: Present: normal inspection. Absent: vertebral tenderness Neurological exam: Present: alert. Absent: motor sensory deficit Skin exam: Present: warm, dry, normal color Course Vital Signs 07/03/23 07/03/23 07/03/23 14:10 15:23 16:21 Temperature 98.5 F Pulse Rate 68 83 83 Respiratory 18 18 18 Rate Blood Pressure 195/98 170/109 173/100 O2 Sat by Pulse 97 84 L 96 Oximetry 07/03/23 07/03/23 07/03/23 16:47 19:08 20:00 Temperature Pulse Rate 67 88 Respiratory 18 18 18 Rate Blood Pressure 144/94 170/95 O2 Sat by Pulse 90 L 96 Oximetry 07/03/23 20:24 Temperature 98.1 F Pulse Rate 98 Respiratory 18 Rate Blood Pressure 134/84 O2 Sat by Pulse 96 Oximetry Medical Decision Making - Medical Decision Making The patient had left hip and pelvis x-ray that I interpreted as showing femoral neck fracture. The patient had left wrist x-ray which I interpreted as showing moderately severe degenerative changes no acute fracture. The patient had chest x-ray that I interpreted as negative for acute infiltrate or pneumothorax. Possible mild congestive heart failure. Was pt. sent in by a medical professional or institution (, PA, LAWN MOWER OPERATOR, urgent care, hospital, or long term...) When possible be specific @ -[No] Did you speak to anyone other than the patient for history (EMS, parent, family, police, friend...)? What history was obtained from this source @ -[No] Did you review nursing and triage notes (agree or disagree)? Why? @ -[I reviewed and agree with nursing and triage notes] Were old charts reviewed (outside hosp., previous admission, EMS record, old EKG, old radiological studies, urgent care reports/EKG's, long term records)? Report findings @ -[No old charts were reviewed] Differential Diagnosis (chest pain, altered mental status, abdominal pain women, abdominal pain men, vaginal bleeding, weakness, fever, dyspnea, syncope, headache, dizziness, GI bleed, back pain, seizure, CVA, palpatations, mental health, musculoskeletal)? @ -Differential Musculoskeletal Muscular strain, contusion, ligament sprain, fracture, arthritis, septic arthritis, bursitis, cellulitis, muscle spasm, nerve compression, DVT, arterial occlusion, herpes zoster, electrolyte abnormality, tumor.... This is not meant to be in all inclusive list EKG interpreted by me (3pts min.). @ -[I interpreted as above] X-rays interpreted by me (1pt min.). @ -[I interpreted as above CT interpreted by me (1pt min.). @ -[None done] U/S interpreted by me (1pt. min.). @ -[None done] What testing was considered but not performed or refused? (CT, X-rays, U/S, labs)? Why? @ -[None] What meds were considered but not given or refused? Why? @ -[None] Did you discuss the management of the patient with other professionals (professionals i.e. , PA, LAWN MOWER OPERATOR, lab, RT, psych nurse, social work job titles, pilot, teacher, unarmed security officer, case resolution specialist)? Give summary @ -Case discussed with orthopedics and will admit to have probable surgical treatment. Was smoking cessation discussed for >3mins.? @ -[No] Was critical care preformed (if so, how long)? @ -[No] Were there social determinants of health that impacted care today? How? (Homelessness, low income, unemployed, alcoholism, drug addiction, transportation, low edu. Level, literacy, decrease access to med. care, senior living, rehab)? @ -[No] Was there de-escalation of care discussed even if they declined (Discuss DNR or withdrawal of care, Hospice)? DNR status @ -[No] What co-morbidities impacted this encounter? (DM, HTN, Smoking, COPD, CAD, Cancer, CVA, ARF, Chemo, Hep., AIDS, mental health diagnosis, sleep apnea, mo rbid obesity)? @ -[None] Was patient admitted / discharged? Hospital course, mention meds given and route, prescriptions, significant lab abnormalities, going to OR and other pertinent info. @ -[As above Undiagnosed new problem with uncertain prognosis? @ -[No] Drug Therapy requiring intensive monitoring for toxicity (Heparin, Nitro, Insulin, Cardizem)? @ -[No] Were any procedures done? @ -[No] Diagnosis/symptom? @ -[Acute hip fracture Acute, or Chronic, or Acute on Chronic? @ -[Acute Uncomplicated (without systemic symptoms) or Complicated (systemic symptoms)? @ -[Uncomplicated Side effects of treatment? @ -[No] Exacerbation, Progression, or Severe Exacerbation? @ -[No] Poses a threat to life or bodily function? How? (Chest pain, [place], [place], pneumonia, PE, COPD, DKA, ARF, appy, cholecystitis, CVA, Diverticulitis, Homicidal, Suicidal, threat to staff... and all critical care pts) @ -[Yes - Lab Data Result diagrams: 07/07/23 04:18 07/06/23 04:18 Lab Results 07/03/23 07/03/23 07/03/23 Range/Units 15:56 15:56 15:56 WBC 8.2 (3.8-10.6) k/uL RBC 4.50 (4.30-5.90) m/uL Hgb 13.4 (13.0-17.5) gm/dL Hct 40.2 (39.0-53.0) % MCV 89.3 (80.0-100.0) fL MCH 29.8 (25.0-35.0) pg MCHC 33.4 (31.0-37.0) g/dL RDW 13.6 (11.5-15.5) % Plt Count 115 L (150-450) k/uL MPV 7.8 Neutrophils % 80 % Lymphocytes % 12 % Monocytes % 5 % Eosinophils % 1 % Basophils % 0 % Neutrophils # 6.6 (1.3-7.7) k/uL Lymphocytes # 1.0 (1.0-4.8) k/uL Monocytes # 0.4 (0-1.0) k/uL Eosinophils # 0.1 (0-0.7) k/uL Basophils # 0.0 (0-0.2) k/uL PT 11.3 (10.0-12.5) sec INR 1.0 (<1.2) APTT 23.0 (22.0-30.0) sec Sodium 130 L (137-145) mmol/L Potassium 4.1 (3.5-5.1) mmol/L Chloride 101 (98-107) mmol/L Carbon Dioxide 21 L (22-30) mmol/L Anion Gap 8 mmol/L BUN 18 (9-20) mg/dL Creatinine 0.83 (0.66-1.25) mg/dL Est GFR (CKD-EPI)AfAm >90 (>60 ml/min/1.73 sqM) Est GFR (CKD-EPI)NonAf 79 (>60 ml/min/1.73 sqM) Glucose 101 H (74-99) mg/dL Calcium 9.2 (8.4-10.2) mg/dL Total Bilirubin 0.5 (0.2-1.3) mg/dL AST 31 (17-59) U/L ALT 19 (4-49) U/L Alkaline Phosphatase 103 (38-126) U/L Total Protein 6.6 (6.3-8.2) g/dL Albumin 4.0 (3.5-5.0) g/dL Urine Color Urine Appearance (Clear) Urine pH (5.0-8.0) Ur Specific Cameron (1.001-1.035) Urine Protein (Negative) Urine Glucose (UA) (Negative) Urine Ketones (Negative) Urine Blood (Negative) Urine Nitrite (Negative) Urine Bilirubin (Negative) Urine Urobilinogen (<2.0) mg/dL Ur Leukocyte Esterase (Negative) 07/03/23 Range/Units 15:56 WBC (3.8-10.6) k/uL RBC (4.30-5.90) m/uL Hgb (13.0-17.5) gm/dL Hct (39.0-53.0) % MCV (80.0-100.0) fL MCH (25.0-35.0) pg MCHC (31.0-37.0) g/dL RDW (11.5-15.5) % Plt Count (150-450) k/uL MPV Neutrophils % % Lymphocytes % % Monocytes % % Eosinophils % % Basophils % % Neutrophils # (1.3-7.7) k/uL Lymphocytes # (1.0-4.8) k/uL Monocytes # (0-1.0) k/uL Eosinophils # (0-0.7) k/uL Basophils # (0-0.2) k/uL PT (10.0-12.5) sec INR (<1.2) APTT (22.0-30.0) sec Sodium (137-145) mmol/L Potassium (3.5-5.1) mmol/L Chloride (98-107) mmol/L Carbon Dioxide (22-30) mmol/L Anion Gap mmol/L BUN (9-20) mg/dL Creatinine (0.66-1.25) mg/dL Est GFR (CKD-EPI)AfAm (>60 ml/min/1.73 sqM) Est GFR (CKD-EPI)NonAf (>60 ml/min/1.73 sqM) Glucose (74-99) mg/dL Calcium (8.4-10.2) mg/dL Total Bilirubin (0.2-1.3) mg/dL AST (17-59) U/L ALT (4-49) U/L Alkaline Phosphatase (38-126) U/L Total Protein (6.3-8.2) g/dL Albumin (3.5-5.0) g/dL Urine Color Light Yellow Urine Appearance Clear (Clear) Urine pH 5.5 (5.0-8.0) Ur Specific Cameron 1.017 (1.001-1.035) Urine Protein Trace H (Negative) Urine Glucose (UA) Negative (Negative) Urine Ketones Negative (Negative) Urine Blood Negative (Negative) Urine Nitrite Negative (Negative) Urine Bilirubin Negative (Negative) Urine Urobilinogen <2.0 (<2.0) mg/dL Ur Leukocyte Esterase Negative (Negative) Disposition Clinical Impression: Fall, Subcapital fracture of left femur Disposition: ADMITTED IP TO THIS [facility] Condition: Stable Is patient prescribed a controlled substance at d/c from ED?: No
[2023-07-03] MEDS: ENALAPRILAT 1.25 MG/ML 1 ML VIAL IVP STA (16:52)
[2023-07-03] MEDS ORDERED: NALOXONE 0.4 MG/ML 1 ML VIAL IV PRN (17:30)
[2023-07-03] MEDS ORDERED: diazePAM 5 MG TAB PO PRN (17:32)
[2023-07-03] MEDS: HYDROmorphone 0.5 MG/0.5 ML SYRINGE IVP PRN (18:41)
[2023-07-03] MEDS: SODIUM CHLORIDE 0.9% 1,000 ML IV SCH (18:42)
[2023-07-03] MEDS ORDERED: carvediloL 12.5 MG TAB PO SCH (21:00)
[2023-07-03] MEDS ORDERED: METOPROLOL TARTRATE 12.5 MG TAB PO SCH (21:00)
[2023-07-03] MEDS ORDERED: DONEPEZIL 10 MG TAB PO SCH (21:00)
[2023-07-03] MEDS ORDERED: amLODIPine 5 MG TAB PO SCH (21:00)
[2023-07-03] MEDS: ATORVASTATIN 20 MG TAB PO SCH (21:20)
[2023-07-03] MEDS: TAMSULOSIN 0.4 MG CAP.ER.24H PO SCH (21:20)
[2023-07-03] MEDS: FAMOTIDINE 20 MG TAB PO SCH (21:20)
[2023-07-03] MEDS: HYDROmorphone 1 MG/ML 1 ML SYRINGE IVP PRN (22:06)
[2023-07-03] MEDS: carvediloL 6.25 MG TAB PO SCH (23:05)
[2023-07-03] MEDS: QUEtiapine 50 MG TAB PO SCH (23:05)
[2023-07-03] MEDS: MECLIZINE 25 MG TAB PO SCH (23:05)
[2023-07-03] MEDS: traZODone HCL 50 MG TAB PO SCH (23:06)
[2023-07-04] MEDS: carvediloL 6.25 MG TAB PO SCH (06:57)
[2023-07-04] MEDS: PANTOPRAZOLE 40 MG TABLET PO SCH (06:57)
--- NOTE | 2023-07-04 08:04 | P.HPOR ---
History of Present Illness H&P Date: 07/04/23 Chief Complaint: Left hip injury, fall The patient is an 87-year-old male with a past medical history including prostate cancer, hypertension, and hyperlipidemia, who presented to the emergency department after sustaining a fall at home yesterday. He states he tripped over uneven concrete and fell onto his left side. He was unable to bear weight on the left leg and proceeded to the emergency department for further evaluation. Upon x-ray in the emergency department he was found to have a left femoral neck fracture. The patient does live at home with his . He denies hitting his head but does have a skin tear on the left wrist. This morning, the patient is having pain in the hip as expected. No other injuries noted at this time. Review of Systems Constitutional: Denies chills, Denies fatigue, Denies fever Cardiovascular: Denies chest pain, Denies shortness of breath Respiratory: Denies cough Gastrointestinal: Denies diarrhea, Denies nausea, Denies vomiting Musculoskeletal: left: hip pain, hip stiffness, hip swelling Past Medical History Past Medical History: Hyperlipidemia, Hypertension, Prostate Disorder History of Any Multi-Drug Resistant Organisms: None Reported Past Surgical History: Appendectomy Additional Past Surgical History / Comment(s): KIDNEY STONE SURGERY Past Anesthesia/Blood Transfusion Reactions: No Reported Reaction Past Psychological History: No Psychological Hx Reported Smoking Status: Former smoker Past Alcohol Use History: None Reported Past Drug Use History: None Reported - Past Family History Son(s) Family Medical History: Cancer Additional Family Medical History / Comment(s): hodgkins Medications and Allergies Home Medications Medication Instructions Recorded Confirmed Type Rosuvastatin [Crestor] 10 mg PO HS 11/10/19 07/03/23 History Tamsulosin [Flomax] 0.8 mg PO HS 11/10/19 07/03/23 History Meclizine [Antivert] 25 mg PO HS 03/19/20 07/03/23 History Doxazosin [Cardura] 4 mg PO DAILY 07/03/23 07/03/23 History Linaclotide [Linzess] 145 mcg PO DAILY 07/03/23 07/03/23 History Losartan [Cozaar] 50 mg PO DAILY 07/03/23 07/03/23 History Memantine [Namenda] 5 mg PO DAILY 07/03/23 07/03/23 History Omeprazole 40 mg PO DAILY 07/03/23 07/03/23 History QUEtiapine [SEROquel] 50 mg PO HS 07/03/23 07/03/23 History Trospium Chloride 20 mg PO DAILY 07/03/23 07/03/23 History carvediloL [Coreg] 6.25 mg PO BID 07/03/23 07/03/23 History traZODone HCL [Desyrel] 50 mg PO HS 07/03/23 07/03/23 History Allergies Allergy/AdvReac Type Severity Reaction Status Date / Time No Known Allergies Allergy Verified 07/03/23 14:14 Physical Examination The patient is a 87 year old male that is no acute distress. He is alert and oriented x3. The patient's head is normocephalic and atraumatic. Exam of the cervical spine reveals no pain upon palpation or range of motion. Exam of the bilateral upper extremities reveal no obvious deformities or pain upon range of motion. There is a dressing to the left wrist that is clean and dry. Exam of the right lower extremity reveals no pain upon palpation. Exam of the left lower extremity reveals a externally rotated and shortened leg. No pain upon palpation to the lateral hip. There is pain upon logrolling and any range of motion of the leg. Bilateral calves are soft and nontender. Patient has good foot and ankle motion bilaterally. Neurological and circulatory status is intact. Results X-ray of the left hip and pelvis dated 07/03/2023 reveals a left subcapital femoral neck fracture. 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 - Labs Labs: Abnormal Lab Results - Last 24 Hours (Table) 07/03/23 07/03/23 07/03/23 Range/Units 15:56 15:56 15:56 Plt Count 115 L (150-450) k/uL Sodium 130 L (137-145) mmol/L Carbon Dioxide 21 L (22-30) mmol/L Glucose 101 H (74-99) mg/dL Urine Protein Trace H (Negative) H & H 07/03/23 Range/Units 15:56 Hgb 13.4 (13.0-17.5) gm/dL Hct 40.2 (39.0-53.0) % Coagulation 07/03/23 Range/Units 15:56 INR 1.0 (<1.2) Result Diagrams: 07/03/23 15:56 07/03/23 15:56 Assessment and Plan (1) Fall Current Visit: Yes Status: Acute Code(s): W19.XXXA - UNSPECIFIED FALL, INITIAL ENCOUNTER SNOMED Code(s): 0467961 (2) Subcapital fracture of left femur Current Visit: Yes Status: Acute Code(s): S72.012A - UNSP INTRACAPSULAR FRACTURE OF LEFT FEMUR, INIT FOR CLOS FX SNOMED Code(s): 061110601 (3) Prostate cancer Current Visit: Yes Status: Acute Code(s): C61 - MALIGNANT NEOPLASM OF PROSTATE SNOMED Code(s): 080678591 (4) Hypertension Current Visit: Yes Status: Acute Code(s): I10 - ESSENTIAL (PRIMARY) HYPERTENSION SNOMED Code(s): 73805523 (5) Hyperlipidemia Current Visit: Yes Status: Acute Code(s): E78.5 - HYPERLIPIDEMIA, UNSPECIFIED SNOMED Code(s): 65730734 Plan: The clinical and x-ray findings were discussed with the patient. The case was discussed at length with Dr. Duke and Dr. Parker. Treatment options were discussed and surgical intervention is recommended. We discussed the surgical plan as well as the expected postoperative course. Risks and benefits were reviewed including (but not limited to) the risks of infection, dislocation, bleeding, blood clots, delayed or nonunion, anesthesia-related complications and possible need for additional surgery. Questions were invited and answered. The patient expressed understanding and wishes to proceed with surgery. The patient will be kept on bedrest. Continue PRN pain management. NPO today. He is scheduled for a left hip hemiarthroplasty hip later this morning. We will await pre-op clearance from internal medicine.
[2023-07-04] MEDS: HYDROmorphone 1 MG/ML 1 ML SYRINGE IVP STA (08:27)
[2023-07-04] MEDS: MEMANTINE 5 MG TAB PO SCH (08:29)
[2023-07-04] MEDS: DOXAZOSIN 4 MG TAB PO SCH (08:29)
[2023-07-04] MEDS: LACTATED RINGERS 1,000 ML IV ONE ×2 (10:09→11:32)
[2023-07-04] MEDS ORDERED: SUCCINYLCHOLINE CHLORIDE 200 MG/10 ML VIAL IV ONE (10:32)
[2023-07-04] MEDS ORDERED: ePHEDrine 50 MG/ML 1 ML VIAL ONE (10:32)
[2023-07-04] MEDS ORDERED: NEOSTIGMINE 1 MG/ML 10 ML VIAL ONE (10:32)
[2023-07-04] MEDS ORDERED: GLYCOPYRROLATE 0.2 MG/ML 2 ML VIAL ONE (10:32)
[2023-07-04] MEDS ORDERED: PROPOFOL 10 MG/ML 20 ML VIAL IV ONE (10:32)
[2023-07-04] MEDS ORDERED: ROCURONIUM 10 MG/ML (5 ML VIAL) IV ONE (10:32)
[2023-07-04] MEDS ORDERED: LIDOCAINE 1% INJ 10MG/ML (20 ML MDV) ONE (10:32)
[2023-07-04] MEDS ORDERED: TRANEXAMIC 1,000 MG/100ML-NACL PREMIX BAG ONE (10:32)
[2023-07-04] MEDS ORDERED: fentaNYL (PF) 50 MCG/ML 2 ML AMP ONE (10:32)
[2023-07-04] MEDS: SODIUM CHLORIDE 0.9% 100 ML with ceFAZolin 2,000 MG IV ONE (11:00)
--- NOTE | 2023-07-04 12:37 | P.OP ---
Date of Procedure: 07/04/23 Preoperative Diagnosis: 1. Displaced left subcapital femoral neck fracture Postoperative Diagnosis: Same Procedure(s) Performed: Left direct anterior hip hemiarthroplasty Implants: Accolade C size #5 STD offset, Bipolar 47-mm OD, 28-mm ID, -4mm neck Anesthesia: EZRA, regional Surgeon: Yossi Parker Postdoctoral Research Fellow #1: Julieta Pina Estimated Blood Loss (ml): 100 IV fluids (ml): 1,000 Pathology: none sent Condition: stable Disposition: PACU Indications for Procedure: I met with the patient and their family to discuss treatment options. The patient has a displaced femoral neck fracture and based on their age, activity level, and medical comorbidities I recommended a hip hemiarthroplasty to facilitate early mobilization. My recommendation was to perform the hemiarthroplasty through a direct anterior approach to help lower the risk of dislocation and improve postoperative recovery and use cemented fixation of the femoral component to reduce the risk of fracture and postoperative thigh pain. We discussed the potential risks and complications of a hemiarthroplasty for displaced femoral neck fracture at length. Risks discussed include are certainly not limited to risks from anesthesia, superficial infection requiring local wound care and possibly surgical debridement, deep periprosthetic joint infection and the treatment for this, damage to local blood vessels or nerves particularly the lateral femoral cutaneous nerve, intraoperative fracture, postoperative periprosthetic fracture, leg length discrepancy, hip dislocation, aseptic loosening, groin pain, thigh pain, progression of arthritis requiring conversion to total hip arthroplasty, complications related to cementing the component, an inability to regain preinjury level of function, DVT, PE, acute coronary event, stroke, pneumonia, urinary tract infection, failure to thrive, and possibly . The patient and their family understand that while these are the most common complications other less common complications are possible. They provided their verbal and written consent to go forward with surgery. Operative Findings: Displaced subcapital femoral neck fracture with large hemarthrosis Description of Procedure: The patient was identified in the preoperative holding area and the correct hip was marked with my initials. I reviewed the procedure and consent with the patient. All of their questions were answered. The patient was then brought back into the operating room by anesthesia. While on the [facility] anesthesia was administered by the anesthesia team. Preoperative antibiotics and tranexamic acid were also given. After the patient was under anesthesia I examined their ankles to determine their preoperative leg length discrepancy. The skin over the anterior aspect of the hip was shaved to remove hair over the site of planned incision. Both feet and ankles were padded with webril and boots for the [place] were applied. The patient was then carefully transferred onto the [place] table. A perineal post was immediately placed. The arms were placed on arm holders and were well-padded. Both boots were secured to the spars on the [place] table. The patient was positioned so that the pelvis was centered over the post. Nonsterile drapes were applied. A timeout was performed identifying the correct patient, operative extremity, and procedure. At this point fluoroscopy was brought in to take preoperative images of the pelvis and operative hip. A metallic bar was used to create a bi-ischial line for use as a reference to leg length adjustments during the procedure. Global offset was also measured on both the operative and nonoperative leg. Fluoroscopy was then brought out and a pre-scrub using a chlorhexidine scrub brush was performed. The operative limb was then prepped and draped in the standard sterile fashion. An anterior longitudinal incision was made lateral and distal to the ASIS. The skin and subcutaneous tissues were incised sharply. The underlying tensor fascia was identified and incised in its midportion. The fascia was dissected free from the underlying muscle and the muscle belly was retracted. A blunt ti pped cobra retractor was placed over the superior neck under the muscle fibers of the gluteus minimus. The deep enveloping fascia of the tensor was incised. The anterior leash of vessels were then identified and cauterized. The fascia between the rectus and the capsule was then incised and the pre-capsular fat was excised. A second Cobra was placed inferior to the neck. The interval between the rectus and iliocapsularis and the hip capsule was developed and a retractor was placed carefully over the anterior rim of the acetabulum. A T-shaped anterior capsulotomy was performed. A hemarthrosis consistent with a femoral neck fracture was identified. The superior capsular leaflet was left in place in the inferior capsular flap was excised. The Cobra retractors were placed intracapsularly. A displaced femoral neck fracture was then identified. We then made a femoral neck osteotomy according to preoperative and intraoperative templating and confirmed the level of the osteotomy using fluoroscopic imaging. The femoral head was removed, passed off to the back table, and sized. The superior capsular flap was excised. On inspection of the acetabulum there were minimal degenerative changes with intact cartilage. Attention was then turned to the femur. The remnant dorsal lateral capsule was excised. The short external rotators were visible and protected. A bone hook was used to confirm appropriate translation of the trochanter away from the acetabulum. The leg was then extended and adducted and the bone hook was used to elevate the femur for broaching. A box osteotome and blunt tipped canal sound was then utilized to gain access to the femoral canal. We then sequentially broached the femur in appropriate anteversion until torsional stability was achieved and the implant was felt to have reached the appropriate size to allow trialing. The neck cut was brought flush to the trial broach with a calcar planar. A trial neck and head were then placed onto the broach and the hip was atraumatically reduced under direct visualization. External rotation to 90 was performed to assess stability. Fluoroscopy was brought in. An AP and lateral fluoroscopic image of the proximal femur was obtained to assess position and fill of the trial broach. An AP of the pelvis was then obtained and matched to the preoperative image taken. A bi-ischial bar was then placed and measurements were taken to assess changes in length and offset. The hip was then carefully dislocated, the proximal femur was exposed, and the trial implants were removed. The proximal femur was then prepared for cementing. The canal was thoroughly irrigated with pulsatile lavage to remove blood and marrow contents. A cement restrictor was placed to a depth just distal to the tip of the final implant. Epinephrine-soaked gauze was then packed into the proximal femur. 2 bags of cement with antibiotics were then mixed using a centrifuge and placed into a cement gun. Anesthesia was notified that cementing was about to commence to make sure the patient was appropriately ventilated and hydrated. Once the cement had reached appropriate consistency, the cement gun was used to fill the canal in a retrograde fashion starting at the restrictor. Cement was then pressurized into the canal with a blue tipped head chef. The stem was then carefully introduced into the cement taking care to guide the implant into appropriate version. The stem was held in position until the cement had fully set. All extra cement was removed while the cement was hardening. The trunnion was cleansed and the final head was tapped into place to engage the Bain taper. The acetabulum was irrigated and visualized to be free of debris. The hip was carefully reduced. Stability was checked clinically with external rotation to 90 and there was no evidence of instability. Final fluoroscopic images were taken. The wound was then thoroughly irrigated with Irrisept. 3 L of sterile saline was irrigated through the wound using pulsatile lavage. Local anesthetic cocktail was injected into the soft tissues around the surgical field. A deep drain was placed. The wound was then closed in layers. A sterile dressing was placed over the surgical incision and drain site. The drapes were taken down and the patient was carefully transferred off of the [place] table. Following removal of the boots the leg lengths felt acceptable. The patient was then taken to recovery room having tolerated the procedure well. Julieta Pina NP was required as a skilled commissary assistant due to the complexity of surgery for patient positioning, draping, retraction, exposure, closure and application of dressing PLAN: The patient can weight-bear as tolerated on the operative extremity. 2 doses of postoperative antibiotics. DVT prophylaxis with aspirin 81 mg twice a day based on preoperative risk stratification. Physical therapy for gait training. Discontinue drain postoperative day #1 if output is less than 100 mL per shift.
--- NOTE | 2023-07-04 13:23 | XR ---
EXAMINATION TYPE: XR Hip Limited LT, FL guidance operating room DATE OF EXAM: 07/04/2023 Clinical History: 7-year-old male LT HIP FX Findings: Left hip hemiarthroplasty 22 sec fl 0.7656 Gycm2 DAP 6 images provided Impression: Intraoperative fluoroscopy as above.
--- NOTE | 2023-07-04 13:55 | P.CONS ---
History of Present Illness - Reason for Consult Consult date: 07/04/23 medical management - History of Present Illness History of present illness;patient is a 87-year-old gentleman with past medical history significant for hypertension, hyperlipidemia, BPH, prostate cancer who presented to the ER after a fall.patient was apparently walking in his home and he states there is some uneven concrete and he tripped on it and fell on his left side. Following that patient started having left groin pain, patient was unable to bear any weight on his left leg. Because of left hip pain, patient was brought to the ER Initial lab work done in the ER showed WBC 8.2, hemoglobin 13.4, platelet count 115, sodium 130, potassium 4.1, BUN 18, creatinine 0.83 UA negative for any infection X-ray left wrist done showed severe [id number] degenerative changes of radial carpal and ulnar carpal joint with chronically remodeled and diminutive appearance to the lunate bone x-ray of the hip done showed a displaced subcapital left femoral neck fracture Chest x-ray done in the ERshowed mild cardiac megaly, interstitial prominence could represent mild pulmonary congestion Patient admitted to orthopedics service REVIEW OF SYSTEMS: CONSTITUTIONAL: No fever, no malaise, no fatigue. HEENT: No recent visual problems or hearing problems. Denied any sore throat. CARDIOVASCULAR: No chest pain, orthopnea, PND, no palpitations, no syncope. PULMONARY: No shortness of breath, no cough, no hemoptysis. GASTROINTESTINAL: No diarrhea, no nausea, no vomiting, no abdominal pain. NEUROLOGICAL: No headaches, no weakness, no numbness. HEMATOLOGICAL: Denies any bleeding or petechiae. GENITOURINARY: Denies any burning micturition, frequency, or urgency. MUSCULOSKELETAL/RHEUMATOLOGICAL: as mentioned in HPI ENDOCRINE: Denies any polyuria or polydipsia. The rest of the 14-point review of systems is negative. PHYSICAL EXAMINATION: GENERAL: The patient is alert and oriented x3, not in any acute distress. Well developed, well nourished. HEENT: Pupils are round and equally reacting to light. EOMI. No scleral icterus. No conjunctival pallor. Normocephalic, atraumatic. No pharyngeal erythema. No thyromegaly. CARDIOVASCULAR: S1 and S2 present. No murmurs, rubs, or gallops. PULMONARY: Chest is clear to auscultation, no wheezing or crackles. ABDOMEN: Soft, nontender, nondistended, normoactive bowel sounds. No palpable organomegaly. MUSCULOSKELETAL: No joint swelling or deformity. EXTREMITIES: No cyanosis, clubbing, or pedal edema. NEUROLOGICAL: Gross neurological examination did not reveal any focal deficits. SKIN: No rashes. Assessment and plan fall Left hip fracture Hypertension Hyperlipidemia History of prostate cancer BPH monitor vital signs Monitor CBC Ordered troponin Ordered EKG Order proBNP Continue pain management per orthopedics Continue DVT prophylaxis per orthopedics Resume home meds patient is medically cleared for orthopedic procedure with moderate risk of postoperative complications Labs and medication were reviewed.. Continue same treatment. Continue with symptomatic treatment. Resume home medication. Monitor labs and vitals. DVT and GI prophylaxis. Further recommendations as per clinical course of the patient Dictation was produced using [employer] dictation software. please excuse any grammatical, word or spelling errors. Past Medical History Past Medical History: Hyperlipidemia, Hypertension, Prostate Disorder History of Any Multi-Drug Resistant Organisms: None Reported Past Surgical History: Appendectomy Additional Past Surgical History / Comment(s): KIDNEY STONE SURGERY Past Anesthesia/Blood Transfusion Reactions: No Reported Reaction Past Psychological History: No Psychological Hx Reported Smoking Status: Former smoker Past Alcohol Use History: None Reported Past Drug Use History: None Reported - Past Family History Son(s) Family Medical History: Cancer Additional Family Medical History / Comment(s): hodgkins Medications and Allergies Home Medications Medication Instructions Recorded Confirmed Type Rosuvastatin [Crestor] 10 mg PO HS 11/10/19 07/03/23 History Tamsulosin [Flomax] 0.8 mg PO HS 11/10/19 07/03/23 History Meclizine [Antivert] 25 mg PO HS 03/19/20 07/03/23 History Doxazosin [Cardura] 4 mg PO DAILY 07/03/23 07/03/23 History Linaclotide [Linzess] 145 mcg PO DAILY 07/03/23 07/03/23 History Losartan [Cozaar] 50 mg PO DAILY 07/03/23 07/03/23 History Memantine [Namenda] 5 mg PO DAILY 07/03/23 07/03/23 History Omeprazole 40 mg PO DAILY 07/03/23 07/03/23 History QUEtiapine [SEROquel] 50 mg PO HS 07/03/23 07/03/23 History Trospium Chloride 20 mg PO DAILY 07/03/23 07/03/23 History carvediloL [Coreg] 6.25 mg PO BID 07/03/23 07/03/23 History traZODone HCL [Desyrel] 50 mg PO HS 07/03/23 07/03/23 History Aspirin 81 mg PO BID #60 tab 07/04/23 Rx Docusate [Colace] 100 mg PO BID #28 capsule 07/04/23 Rx HYDROcodone/APAP 5-325MG [Ventura 1 - 2 tab PO Q6HR PRN #32 tab 07/04/23 Rx 5-325] Omeprazole 40 mg PO DAILY #30 cap 07/04/23 Rx Allergies Allergy/AdvReac Type Severity Reaction Status Date / Time No Known Allergies Allergy Verified 07/03/23 14:14 Physical Exam Vitals: Vital Signs Temp Pulse Pulse Resp BP BP Pulse Ox 07/04/23 07:20 99.3 F 71 16 111/63 94 L 07/04/23 02:00 98.3 F 83 26 H 103/66 85 L 07/03/23 21:30 98.7 F 97 20 143/71 97 07/03/23 20:24 98.1 F 98 18 134/84 96 07/03/23 20:00 18 07/03/23 19:08 88 18 170/95 96 07/03/23 16:47 67 18 144/94 90 L 07/03/23 16:21 83 18 173/100 96 07/03/23 15:23 83 18 170/109 84 L 07/03/23 14:10 98.5 F 68 18 195/98 97 Intake and Output 07/03/23 07/04/23 07/04/23 22:59 06:59 14:59 Output Total 500 Balance -500 Output: Urine 500 Other: Voiding Method Urinal Weight 79.379 kg Results CBC & Chem 7: 07/03/23 15:56 07/03/23 15:56 Labs: Abnormal Lab Results - Last 24 Hours (Table) 07/03/23 07/03/23 07/03/23 Range/Units 15:56 15:56 15:56 Plt Count 115 L (150-450) k/uL Sodium 130 L (137-145) mmol/L Carbon Dioxide 21 L (22-30) mmol/L Glucose 101 H (74-99) mg/dL Urine Protein Trace H (Negative)
[2023-07-04 14:14] LABS: African American GFR (CKD) 45 (>60 ml/min/1.73 sqM); Anion Gap 4 mmol/L; Blood Urea Nitrogen 22 mg/dL (9-20); Calcium 8.5 mg/dL (8.4-10.2); Carbon Dioxide 24 mmol/L (22-30); Chloride 103 mmol/L (98-107); Glucose 108 mg/dL (74-99); Non-African American GFR(CKD) 39 (>60 ml/min/1.73 sqM); Potassium 4.1 mmol/L (3.5-5.1); Sodium 131 mmol/L (137-145)
[2023-07-04 14:23] LABS: NT-Pro-B-Type Natriuretic Pept 999 pg/mL
[2023-07-05] MEDS ORDERED: MAGNESIUM HYDROXIDE 2,400 MG/30 ML CUP PO PRN (08:28)
--- NOTE | 2023-07-05 08:46 | P.PN ---
Subjective Progress Note Date: 07/05/23 Principal diagnosis: Status post left hip sushila This is a 87 year-old male post left hip hemiarthroplasty. This is post-op day 1. The patient was evaluated at the bedside today. The patient denies nausea, vomiting, abdominal pain, shortness of breath, and chest pain this morning. He states his pain is moderately controlled at this time. The patient has not been up with physical therapy. He is a low grade fever this morning. Objective - Vital Signs Vital signs: Vital Signs Temp 99.9 F H 07/05/23 07:17 Pulse 101 H 07/05/23 07:17 Resp 19 07/05/23 07:17 BP 121/67 07/05/23 07:17 Pulse Ox 96 07/05/23 07:17 FiO2 Intake & Output 07/04/23 07/05/23 07/05/23 18:59 06:59 18:59 Intake Total 2060 Output Total 450 1609 Balance 1610 -1609 Intake: IV 1800 Oral 260 Output: Urine 350 1200 Straight 500 Post Void Residual 409 Estimated Blood Loss 100 Other: Voiding Method Urinal - Exam The patient does not appear in acute distress. Alert and orientated x2. Dressing is clean dry and intact. Incision appears fine with no erythema or active drainage. Calf is soft and nontender. Good foot and ankle motion without difficulty. Sensation and circulatory status is intact. - Labs CBC & Chem 7: 07/03/23 15:56 07/04/23 13:17 Labs: Abnormal Lab Results - Last 24 Hours (Table) 07/04/23 Range/Units 13:17 Sodium 131 L (137-145) mmol/L BUN 22 H (9-20) mg/dL Creatinine 1.56 H (0.66-1.25) mg/dL Glucose 108 H (74-99) mg/dL Assessment and Plan (1) Fall Current Visit: Yes Status: Acute Code(s): W19.XXXA - UNSPECIFIED FALL, INITIAL ENCOUNTER SNOMED Code(s): 3849263 (2) Subcapital fracture of left femur Current Visit: Yes Status: Acute Code(s): S72.012A - UNSP INTRACAPSULAR FRACTURE OF LEFT FEMUR, INIT FOR CLOS FX SNOMED Code(s): 958071568 (3) Prostate cancer Current Visit: Yes Status: Acute Code(s): C61 - MALIGNANT NEOPLASM OF PROSTATE SNOMED Code(s): 345185842 (4) Hypertension Current Visit: Yes Status: Acute Code(s): I10 - ESSENTIAL (PRIMARY) HYPERTENSION SNOMED Code(s): 15656677 (5) Hyperlipidemia Current Visit: Yes Status: Acute Code(s): E78.5 - HYPERLIPIDEMIA, UNSPECIFIED SNOMED Code(s): 74454561 Plan: 1. Continue pain control 2. Anticoagulation with Aspirin 3. Start physical therapy and ambulation 4. Incentive spirometer ordered and encouraged this morning. 5. Anticipate discharge to skilled rehab most likely.
[2023-07-05] MEDS: HYDROcodone/APAP 5-325MG 1 EACH TAB PO PRN (08:47)
[2023-07-05 09:51] LABS: Basophils % (A) 0 %; Eosinophils % (A) 0 %; HCT 33.6 % (39.0-53.0); HGB 11.5 gm/dL (13.0-17.5); Lymphocytes # (A) 0.6 k/uL (1.0-4.8); Lymphocytes % (A) 6 %; MCH 30.1 pg (25.0-35.0); MCHC 34.1 g/dL (31.0-37.0); MCV 88.4 fL (80.0-100.0); Mean Platelet Volume 8.3; Monocytes # (A) 0.7 k/uL (0-1.0); Monocytes % (A) 6 %; Neutrophils # (A) 8.7 k/uL (1.3-7.7); Neutrophils % (A) 86 %; RDW 13.9 % (11.5-15.5)
[2023-07-05] MEDS: ASPIRIN 81 MG PO SCH (10:05)
[2023-07-05 10:30] LABS: Platelet Count 78 k/uL (150-450)
[2023-07-05] MEDS: traMADol 50 MG TAB PO PRN (10:32)
[2023-07-05 10:34] LABS: Toxic Granulation Present
--- NOTE | 2023-07-05 12:19 | P.PN ---
Subjective Progress Note Date: 07/05/23 patient is a 87-year-old gentleman with past medical history significant for hypertension, hyperlipidemia, BPH, prostate cancer who presented to the ER after a fall.patient was apparently walking in his home and he states there is some uneven concrete and he tripped on it and fell on his left side. Following that patient started having left groin pain, patient was unable to bear any weight on his left leg. Because of left hip pain, patient was brought to the ER Initial lab work done in the ER showed WBC 8.2, hemoglobin 13.4, platelet count 115, sodium 130, potassium 4.1, BUN 18, creatinine 0.83 UA negative for any infection X-ray left wrist done showed severe [id number] degenerative changes of radial carpal and ulnar carpal joint with chronically remodeled and diminutive a ppearance to the lunate bone x-ray of the hip done showed a displaced subcapital left femoral neck fracture Chest x-ray done in the ERshowed mild cardiac megaly, interstitial prominence could represent mild pulmonary congestion Patient admitted to orthopedics service 07/04. Patient seen and examined. Patient was little confused this morning, could be secondary to pain medications. Family at the bedside. Still complaining of left hip pain, s/p left hip hemiarthroplasty REVIEW OF SYSTEMS: CONSTITUTIONAL: No fever, no malaise,. CARDIOVASCULAR: No chest pain, no palpitations, no syncope. PULMONARY: No shortness of breath, no cough, GASTROINTESTINAL: No diarrhea, no nausea, no vomiting, no abdominal pain. NEUROLOGICAL: No headaches, no weakness, PHYSICAL EXAMINATION: GENERAL: The patient is alert , not in any acute distress. Well developed, well nourished. HEENT: Pupils are round and equally reacting to light. EOMI. No scleral icterus. No conjunctival pallor. Normocephalic, atraumatic. No pharyngeal erythema. No thyromegaly. CARDIOVASCULAR: S1 and S2 present. No murmurs, rubs, or gallops. PULMONARY: Chest is clear to auscultation, no wheezing or crackles. ABDOMEN: Soft, nontender, nondistended, normoactive bowel sounds. No palpable organomegaly. MUSCULOSKELETAL: No joint swelling or deformity. Left hip surgical incision seen EXTREMITIES: No cyanosis, clubbing, or pedal edema. NEUROLOGICAL: Gross neurological examination did not reveal any focal deficits. SKIN: No rashes. Assessment and plan fall Left hip fracture Hypertension Hyperlipidemia History of prostate cancer BPH Monitor vital signs Monitor CBC Monitor CMP S/p left hip hemiarthroplasty Continue pain management per orthopedics Continue DVT prophylaxis per orthopedics Continue home meds PT and OT consulted Orthopedic following Labs and medication were reviewed.. Continue same treatment. Continue with symptomatic treatment. Resume home medication. Monitor labs and vitals. DVT and GI prophylaxis. Further recommendations as per clinical course of the patient Dictation was produced using [employer] dictation software. please excuse any gramma tical, word or spelling errors. Objective - Vital Signs Vital signs: Vital Signs Temp 99.9 F H 07/05/23 07:17 Pulse 101 H 07/05/23 07:17 Resp 19 07/05/23 07:17 BP 121/67 07/05/23 07:17 Pulse Ox 96 07/05/23 07:17 FiO2 Intake & Output 07/04/23 07/05/23 07/05/23 18:59 06:59 18:59 Intake Total 2060 Output Total 450 1609 Balance 1610 -1609 Intake: IV 1800 Oral 260 Output: Urine 350 1200 Straight 500 Post Void Residual 409 Estimated Blood Loss 100 Other: Voiding Method Urinal - Labs CBC & Chem 7: 07/05/23 09:08 07/04/23 13:17 Labs: Abnormal Lab Results - Last 24 Hours (Table) 07/04/23 07/05/23 Range/Units 13:17 09:08 RBC 3.80 L (4.30-5.90) m/uL Hgb 11.5 L (13.0-17.5) gm/dL Hct 33.6 L (39.0-53.0) % Plt Count 78 L (150-450) k/uL Neutrophils # 8.7 H (1.3-7.7) k/uL Lymphocytes # 0.6 L (1.0-4.8) k/uL Sodium 131 L (137-145) mmol/L BUN 22 H (9-20) mg/dL Creatinine 1.56 H (0.66-1.25) mg/dL Glucose 108 H (74-99) mg/dL
[2023-07-05] MEDS: SENNOSIDES-DOCUSATE SODIUM 1 EACH TAB PO SCH (20:40)
[2023-07-06] MEDS: FAMOTIDINE 20 MG TAB PO SCH (08:27)
[2023-07-06 08:51] LABS: ALT 11 U/L (10-49); AST 31 U/L (14-35); Albumin 3.1 g/dL (3.8-4.9); Albumin/Globulin Ratio 1.94 Ratio (1.60-3.17); Alkaline Phosphatase 54 U/L (41-126); Blood Urea Nitrogen 23.4 mg/dL (9.0-27.0); Calcium 8.5 mg/dL (8.7-10.3); Carbon Dioxide 23.9 mmol/L (21.6-31.8); Chloride 100 mmol/L (96-109); Globulin 1.6 g/dL (1.6-3.3); Glucose 110 mg/dL (70-110); Potassium 4.2 mmol/L (3.5-5.5); Sodium 131 mmol/L (135-145); Total Bilirubin 0.4 mg/dL (0.3-1.2); Total Protein 4.7 g/dL (6.2-8.2)
[2023-07-06 09:07] LABS: Basophils # (A) 0.02 X 10*3/uL (0.00-0.10); Basophils % (A) 0.2 %; Eosinophils # (A) 0.14 X 10*3/uL (0.04-0.35); Eosinophils % (A) 1.7 %; HGB 9.7 g/dL (13.0-17.0); Lymphocytes # (A) 0.84 X 10*3/uL (0.90-5.00); MCH 29.5 pg (27.0-32.0); MCHC 33.4 g/dL (32.0-37.0); MCV 88.1 FL (80.0-97.0); Mean Platelet Volume 11.2 FL (9.5-12.2); Monocytes # (A) 0.74 X 10*3/uL (0.20-1.00); Monocytes % (A) 8.8 %; NRBC Per 100 WBC 0 X 10*3/uL (0.00-0.01); Neutrophils # (A) 6.65 X 10*3/uL (1.80-7.70); Neutrophils % (A) 79.1 %; Platelet Count 61 X 10*3/uL (140-440); RBC 3.29 X 10*6/uL (4.40-5.60); RBC Morphology Normal (Normal); RDW 13.8 % (11.5-14.5); WBC 8.41 X 10*3/uL (4.50-10.00)
--- NOTE | 2023-07-06 12:33 | P.PN ---
Subjective Patient sitting in bed eating lunch. Pain in left hip. Denies CP/SOB. Objective - Vital Signs Vital signs: Vital Signs Temp 97.7 F 07/06/23 08:03 Pulse 81 07/06/23 08:03 Resp 16 07/06/23 08:49 BP 158/82 07/06/23 08:03 Pulse Ox 91 L 07/06/23 08:03 FiO2 Intake & Output 07/05/23 07/06/23 07/06/23 18:59 06:59 18:59 Intake Total 100 Output Total 400 100 Balance -400 0 Intake: Oral 100 Output: Urine 400 100 Other: Voiding Method Urinal Urinal Urinal # Voids 3 3 - Exam LEFT HIP: dressing intact. Thigh soft. No pain with PROM of hip. Femoral nerve function intact. BILATERAL KNEES: No overlying erythema/warmth. Large effusions. Pain with PROM. - Labs CBC & Chem 7: 07/06/23 04:18 07/06/23 04:18 Labs: Abnormal Lab Results - Last 24 Hours (Table) 07/06/23 07/06/23 Range/Units 04:18 04:18 RBC 3.29 L (4.40-5.60) X 10*6/uL Hgb 9.7 L (13.0-17.0) g/dL Hct 29.0 L (39.6-50.0) % Plt Count 61 L (140-440) X 10*3/uL Lymphocytes # 0.84 L (0.90-5.00) X 10*3/uL Immature Plt Fraction 7.0 H (1.1-6.1) % Sodium 131 L (135-145) mmol/L Est GFR (CKD-EPI) 58 L (>=60) Calcium 8.5 L (8.7-10.3) mg/dL Total Protein 4.7 L (6.2-8.2) g/dL Albumin 3.1 L (3.8-4.9) g/dL Assessment and Plan Assessment: POD# 2 s/p Left DA hip hemiarthroplasty bilateral knee effusions, 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 Continue to attempt to mobilize out of bed to chair and ambulate with walker and assistance when able. Will check bilateral knee xrays, if arthritic, can aspirate and inject both knees. Due to low platelets, IM would like to hold ASA. Discharge planning in progress.
--- NOTE | 2023-07-06 13:12 | XR ---
EXAMINATION TYPE: XR knee complete bilateral DATE OF EXAM: 07/06/2023 COMPARISON: Right knee 09/12/2020 HISTORY: 87-year-old male fusion and pain TECHNIQUE: 3 views each side FINDINGS: There is moderate to severe tricompartmental degenerative change on both sides. Small to moderate kain nt effusions are present on both sides. No lipohemarthrosis on the crosstable lateral views. Densitie s in the suprapatellar pouch may represent small loose bodies. These were present on the previous exam on the right. 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 Small to moderate bilateral joint effusions. No acute fracture seen.
[2023-07-06] MEDS: SODIUM FERRIC GLUCONAT-SUCROSE 125 MG in SODIUM CHLORIDE 0.9% 100 ML IVPB SCH (13:48)
--- NOTE | 2023-07-06 20:28 | P.PN ---
Progress Note - Text Progress Note Date: 07/06/23 Hospital course: patient is a 87-year-old gentleman with past medical history significant for hypertension, hyperlipidemia, BPH, prostate cancer who presented to the ER after a fall.patient was apparently walking in his home and he states there is some uneven concrete and he tripped on it and fell on his left side. Following that patient started having left groin pain, patient was unable to bear any weight on his left leg. Because of left hip pain, patient was brought to the ER Initial lab work done in the ER showed WBC 8.2, hemoglobin 13.4, platelet count 115, sodium 130, potassium 4.1, BUN 18, creatinine 0.83 UA negative for any infection X-ray left wrist done showed severe [id number] degenerative changes of radial carpal and ulnar carpal joint with chronically remodeled and diminutive appearance to the lunate bone x-ray of the hip done showed a displaced subcapital left femoral neck fracture Chest x-ray done in the ERshowed mild cardiac megaly, interstitial prominence could represent mild pulmonary congestion Patient admitted to orthopedics service 07/04. Patient seen and examined. Patient was little confused this morning, could be secondary to pain medications. Family at the bedside. Still complaining of left hip pain, s/p left hip hemiarthroplasty July 05: Patient up in bed. Eating lunch. and daughter at the bedside. Patient's is also rather forgetful. Had a lengthy discussion with the [id number] about getting assisted living for both of them and patient is out of rehab. Patient is only able to transfer to the chair. Did not really walk today. Platelets are low. Aspirin held. STAN stockings ordered. IV Ferrlecit ordered. Active Medications Acetaminophen (Acetaminophen Tab 325 Mg Tab) 650 mg PO Q6HR PRN PRN Reason: Mild Pain or Fever > 100.5 Hydrocodone Bitart/Acetaminophen (Hydrocodone/Apap 5-325mg 1 Each Tab) 1 each PO Q4HR PRN PRN Reason: Pain Scale 6 to 10 Last Admin: 07/06/23 15:35 Dose: 1 each Atorvastatin Calcium (Atorvastatin 20 Mg Tab) 20 mg PO HS [facility] Last Admin: 07/05/23 20:40 Dose: 20 mg Carvedilol (Carvedilol 6.25 Mg Tab) 6.25 mg PO BID [facility] Last Admin: 07/06/23 08:27 Dose: 6.25 mg Doxazosin Mesylate (Doxazosin 4 Mg Tab) 4 mg PO DAILY [facility] Last Admin: 07/06/23 08:28 Dose: 4 mg Famotidine (Famotidine 20 Mg Tab) 20 mg PO DAILY [facility] Last Admin: 07/06/23 08:27 Dose: 20 mg Sodium Chloride (Saline 0.9%) 1,000 mls @ 20 mls/hr IV .Q24H [facility] Last Admin: 07/06/23 11:22 Dose: Not Given Ferric Sodium Gluconate 125 mg (/ Sodium Chloride) 110 mls @ 100 mls/hr IVPB DAILY [facility] Stop: 07/07/23 10:05 Last Admin: 07/06/23 13:48 Dose: 100 mls/hr Magnesium Hydroxide (Magnesium Hydroxide 2,400 Mg/30 Ml Cup) 2,400 mg PO DAILY PRN PRN Reason: Constipation Meclizine HCl (Meclizine 25 Mg Tab) 25 mg PO [facility] Last Admin: 07/05/23 20:40 Dose: 25 mg Memantine (Memantine 5 Mg Tab) 5 mg PO DAILY [facility] Last Admin: 07/06/23 08:27 Dose: 5 mg Naloxone HCl (Naloxone 0.4 Mg/Ml 1 Ml Vial) 0.2 mg IV Q2M PRN PRN Reason: Opioid Reversal Pantoprazole Sodium (Pantoprazole 40 Mg Tablet) 40 mg PO AC-BRKFST [facility] Last Admin: 07/06/23 05:46 Dose: 40 mg Quetiapine Fumarate (Quetiapine 50 Mg Tab) 50 mg PO [facility] Last Admin: 07/05/23 20:41 Dose: 50 mg Senna/Docusate Sodium (Sennosides-Docusate Sodium 1 Each Tab) 2 each PO HS [facility] Last Admin: 07/05/23 20:40 Dose: 2 each Tamsulosin HCl (Tamsulosin 0.4 Mg Cap.Er.24h) 0.8 mg PO [facility] Last Admin: 07/05/23 20:41 Dose: 0.8 mg Tramadol HCl (Tramadol 50 Mg Tab) 50 mg PO Q4HR PRN PRN Reason: Pain Scale 1 to 5 Last Admin: 07/05/23 10:32 Dose: 50 mg Trazodone HCl (Trazodone Hcl 50 Mg Tab) 50 mg PO [facility] Last Admin: 07/05/23 20:41 Dose: 50 mg On examination: VITAL SIGNS: [98.8, 85, 17, 112 x 69,] 91% room air GENERAL APPEARANCE: Lying in bed, comfortable. Eating his lunch s. HEENT: Normal external appearance of nose and ear. Oral cavity normal EYES: Pupils equal. Conjunctiva normal. NECK: JVD not raised. Mass not palpable. RESPIRATORY: Respiratory effort normal. Lungs clear to auscultation. CARDIOVASCULAR: First and second sounds normal. No edema. ABDOMEN: Soft. Liver and spleen not palpable. No tenderness. No mass palpable. PSYCHIATRY: Patient is only answer simple questions. Forgetful MUSCULOSKELETAL: Dressing over incision on the left hip. Evidence of arthritis in several joints INVESTIGATIONS, reviewed in the clinical context: July 05: White count 8.4 hemoglobin 9.7 platelets 61 sodium 131 potassium 4.2 BUN 23.4 creatinine 1.2 Assessment and plan -Fall resulting in left hip fracture -Displaced left subcapital femoral neck fracture secondary to fall. Left direct anterior hip hemiarthroplasty by Dr. Parker on July 03 STAN stockings for DVT prophylaxis. Aspirin held because of thrombocytopenia -Essential hypertension Coreg. -Hyperlipidemia Lipitor -Thrombocytopenia Hold aspirin. -History of prostate cancer -BPH Flomax 0.8 mg nightly. 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 Seroquel. Deseril. -Primary osteoarthritis in multiple joints Care was discussed at length with the [id number] at the bedside. Both the patient have dementia. Recommended to get assisted living once patient gets out from his rehab. Patient has 2 sons and a daughter. Thank you Dr. Parker
[2023-07-07] MEDS: ACETAMINOPHEN TAB 325 MG TAB PO PRN (01:51)
[2023-07-07 05:34] LABS: Basophils % (A) 0 %; Eosinophils # (A) 0.2 k/uL (0-0.7); Eosinophils % (A) 3 %; HCT 27.1 % (39.0-53.0); Lymphocytes # (A) 0.9 k/uL (1.0-4.8); Lymphocytes % (A) 12 %; MCH 31.3 pg (25.0-35.0); MCHC 35.5 g/dL (31.0-37.0); MCV 88.3 fL (80.0-100.0); Mean Platelet Volume 9.3; Monocytes # (A) 0.6 k/uL (0-1.0); Monocytes % (A) 9 %; Neutrophils # (A) 5.3 k/uL (1.3-7.7); Neutrophils % (A) 73 %; RBC 3.07 m/uL (4.30-5.90); RDW 13.9 % (11.5-15.5); WBC 7.3 k/uL (3.8-10.6)
[2023-07-07 05:46] LABS: HGB 9.6 gm/dL (13.0-17.5); Platelet Count 91 k/uL (150-450)
--- NOTE | 2023-07-07 10:22 | P.PN ---
Subjective Progress Note Date: 07/07/23 Principal diagnosis: Status post left hip sushila This is a 87 year-old male post left hip hemiarthroplasty. This is post-op day 3. The patient was evaluated at the bedside today. The patient denies nausea, vomiting, abdominal pain, shortness of breath, and chest pain this morning. He states his pain is controlled at this time. The patient has been up with physical therapy and is moving slowly. X-ray of the knees was obtained yesterday and revealed advanced osteoarthritis. No fractures. He denies knee pain today. Objective - Vital Signs Vital signs: Vital Signs Temp 97.9 F 07/07/23 07:40 Pulse 65 07/07/23 07:40 Resp 17 07/07/23 07:40 BP 163/94 07/07/23 07:40 Pulse Ox 95 07/07/23 07:40 FiO2 Intake & Output 07/06/23 07/07/23 07/07/23 18:59 06:59 18:59 Intake Total 600 Output Total 500 300 Balance 100 -300 Intake: Oral 600 Output: Urine 500 300 Other: Voiding Method Urinal Urinal # Voids 3 - Exam The patient does not appear in acute distress. Alert and orientated x2. Dress ing is clean dry and intact. Incision appears fine with no erythema or active drainage. Calf is soft and nontender. Good foot and ankle motion without difficulty. Sensation and circulatory status is intact. - Labs CBC & Chem 7: 07/07/23 04:18 07/06/23 04:18 Labs: Abnormal Lab Results - Last 24 Hours (Table) 07/07/23 Range/Units 04:18 RBC 3.07 L (4.30-5.90) m/uL Hgb 9.6 L D (13.0-17.5) gm/dL Hct 27.1 L (39.0-53.0) % Plt Count 91 L (150-450) k/uL Lymphocytes # 0.9 L (1.0-4.8) k/uL Assessment and Plan (1) Fall Current Visit: Yes Status: Acute Code(s): W19.XXXA - UNSPECIFIED FALL, INITIAL ENCOUNTER SNOMED Code(s): 3523917 (2) Subcapital fracture of left femur Current Visit: Yes Status: Acute Code(s): S72.012A - UNSP INTRACAPSULAR FRACTURE OF LEFT FEMUR, INIT FOR CLOS FX SNOMED Code(s): 847892847 (3) Prostate cancer Current Visit: Yes Status: Acute Code(s): C61 - MALIGNANT NEOPLASM OF PROSTATE SNOMED Code(s): 005439299 (4) Hypertension Current Visit: Yes Status: Acute Code(s): I10 - ESSENTIAL (PRIMARY) HYPERTENSION SNOMED Code(s): 16145090 (5) Hyperlipidemia Current Visit: Yes Status: Acute Code(s): E78.5 - HYPERLIPIDEMIA, UNSPECIFIED SNOMED Code(s): 11532636 Plan: 1. Continue pain control 2. Anticoagulation with Aspirin 3. Continue physical therapy and ambulation 4. Incentive spirometer encouraged this morning. 5. Anticipate discharge to skilled rehab when bed is obtained and medically cleared. He is orthopedically stable for discharge to rehab.
--- NOTE | 2023-07-07 11:54 | P.DS ---
Providers Date of admission: 07/03/23 17:30 Expected date of discharge: 07/07/23 Attending physician: Yossi Parker Consults: 07/04/23 07:53 Consult Physician Stat Consulting Provider: Clif Judd Consult Reason/Comments: med mgmt Do you want consulting provider notified?: Yes Primary care physician: Manpreet Brock - Discharge Diagnosis(es) (1) Fall Current Visit: Yes Status: Acute (2) Subcapital fracture of left femur Current Visit: Yes Status: Acute (3) Prostate cancer Current Visit: Yes Status: Acute (4) Hypertension Current Visit: Yes Status: Acute (5) Hyperlipidemia Current Visit: Yes Status: Acute Hospital Course: This is a 87-year-old male that presented to the emergency department at [facility] after sustaining a fall at home. He was found to have a left femoral neck fracture and options were discussed. He opted for a left hip hemiarthroplasty. The patient was seen preoperatively by internal medicine and cleared for surgery. The patient underwent a left hip hemiarthroplasty on 07/04/2023. The procedure was performed without complication or sequelae. The patient is doing well postoperatively. Labs and vital signs are stable the day of discharge. On the day of discharge the patient's hip incision is healing well. There is minimal erythema. There is no drainage noted at this time. There is minimal soft tissue swelling to the hip and thigh. The patient has full foot and ankle motion without difficulty or pain. Neurovascular status to the left lower extremity is intact. The patient will be discharged to skilled rehab today in stable condition. See medication reconciliation for accurate list of discharge medications. Pertinent Studies: Laboratory Tests 07/07/23 04:18 WBC 7.3 RBC 3.07 L Hgb 9.6 L D Hct 27.1 L Plt Count 91 L Patient Condition at Discharge: Stable Plan - Discharge Summary New Discharge Prescriptions: New Omeprazole 40 mg PO DAILY #30 cap Ferrous Sulfate [Feosol] 325 mg PO BID #1 tab Acetaminophen Tab [Tylenol] 650 mg PO Q6HR PRN tab PRN Reason: Mild Pain Or Fever > 100.5 Aspirin 81 mg PO BID #60 tab Docusate [Colace] 100 mg PO BID #28 capsule Continue Tamsulosin [Flomax] 0.8 mg PO HS Rosuvastatin [Crestor] 10 mg PO HS Doxazosin [Cardura] 4 mg PO DAILY Losartan [Cozaar] 50 mg PO DAILY Memantine [Namenda] 5 mg PO DAILY Linaclotide [Linzess] 145 mcg PO DAILY Omeprazole 40 mg PO DAILY QUEtiapine [SEROquel] 50 mg PO HS traZODone HCL [Desyrel] 50 mg PO HS carvediloL [Coreg] 6.25 mg PO BID Trospium Chloride 20 mg PO DAILY Discontinued Meclizine [Antivert] 25 mg PO HS Discharge Medication List Rosuvastatin [Crestor] 10 mg PO HS 11/10/19 [History] Tamsulosin [Flomax] 0.8 mg PO HS 11/10/19 [History] Doxazosin [Cardura] 4 mg PO DAILY 07/03/23 [History] Linaclotide [Linzess] 145 mcg PO DAILY 07/03/23 [History] Losartan [Cozaar] 50 mg PO DAILY 07/03/23 [History] Memantine [Namenda] 5 mg PO DAILY 07/03/23 [History] Omeprazole 40 mg PO DAILY 07/03/23 [History] QUEtiapine [SEROquel] 50 mg PO HS 07/03/23 [History] Trospium Chloride 20 mg PO DAILY 07/03/23 [History] carvediloL [Coreg] 6.25 mg PO BID 07/03/23 [History] traZODone HCL [Desyrel] 50 mg PO HS 07/03/23 [History] Aspirin 81 mg PO BID #60 tab 07/04/23 [Rx] Docusate [Colace] 100 mg PO BID #28 capsule 07/04/23 [Rx] Omeprazole 40 mg PO DAILY #30 cap 07/04/23 [Rx] Acetaminophen Tab [Tylenol] 650 mg PO Q6HR PRN tab 07/07/23 [Rx] Ferrous Sulfate [Feosol] 325 mg PO BID #1 tab 07/07/23 [Rx] Follow up Appointment(s)/Referral(s): Manpreet Brock MD [Primary Care Provider] - 1-2 days Yossi Parker MD [Medical Doctor] - 07/21/23 2:15 pm Activity/Diet/Wound Care/Special Instructions: 1. Weight-bear as tolerated on your operative extremity unless instructed otherwise. Use a walker or other assistive device to ambulate. 2. Leave surgical dressing in place. If your dressing becomes saturated with blood, there is drainage, or the dressing becomes loose please contact the office. 3. It is okay to shower with your surgical dressing, but do not submerge in water (no hot tubs, bath's, swimming etc.) 4. Make sure to take her blood clot prevention medication as prescribed (aspirin, Eliquis, Xarelto, and Plavix are commonly prescribed medications for blood clot prevention) 5. While taking [place] or Percocet for pain make sure you're taking a stool softener (Colace) and drink lots of water. 6. Keep all follow-up appointments as scheduled. You will usually be seen in 1-2 weeks following surgery. 7. Please contact the office with any questions or concerns [phone] cbc- 3 days Discharge Disposition: TRANSFER TO SNF/ECF
[2023-07-07] MEDS: LOSARTAN 50 MG TAB PO SCH (13:11)
[2023-07-07 15:44] VITALS: BP 107/67; PULSE 75; RESP 19; TEMP 98.7
--- NOTE | 2023-07-07 19:33 | P.PN ---
Progress Note - Text Progress Note Date: 07/07/23 Hospital course: patient is a 87-year-old gentleman with past medical history significant for hypertension, hyperlipidemia, BPH, prostate cancer who presented to the ER after a fall.patient was apparently walking in his home and he states there is some uneven concrete and he tripped on it and fell on his left side. Following that patient started having left groin pain, patient was unable to bear any weight on his left leg. Because of left hip pain, patient was brought to the ER Initial lab work done in the ER showed WBC 8.2, hemoglobin 13.4, platelet count 115, sodium 130, potassium 4.1, BUN 18, creatinine 0.83 UA negative for any infection X-ray left wrist done showed severe ewfw-oi-[id number] degenerative changes of radial carpal and ulnar carpal joint with chronically remodeled and diminutive appearance to the lunate bone x-ray of the hip done showed a displaced subcapital left femoral neck fracture Chest x-ray done in the ERshowed mild cardiac megaly, interstitial prominence could represent mild pulmonary congestion Patient admitted to orthopedics service 07/04. Patient seen and examined. Patient was little confused this morning, could be secondary to pain medications. Family at the bedside. Still complaining of left hip pain, s/p left hip hemiarthroplasty July 05: Patient up in bed. Eating lunch. and daughter at the bedside. Patient's is also rather forgetful. Had a lengthy discussion with the [id number] about getting assisted living for both of them and patient is out of rehab. Patient is only able to transfer to the chair. Did not really walk today. Platelets are low. Aspirin held. STAN stockings ordered. IV Ferrlecit ordered. July 06: Did take to 3 steps with physical therapy. Will need inpatient rehab. Did tolerate his diet. Pain controlled. Received IV iron. On examination: VITAL SIGNS: [98.7, 75, 19, 107/67, 96% room air GENERAL APPEARANCE: Comfortable. HEENT: Normal external appearance of nose and ear. Oral cavity normal EYES: Pupils equal. Conjunctiva normal. NECK: JVD not raised. Mass not palpable. RESPIRATORY: Respiratory effort normal. Lungs clear to auscultation. CARDIOVASCULAR: First and second sounds normal. No edema. ABDOMEN: Soft. Liver and spleen not palpable. No tenderness. No mass palpable. PSYCHIATRY: Patient is only answer simple questions. Forgetful MUSCULOSKELETAL: Dressing over incision on the left hip. Evidence of arthritis in several joints INVESTIGATIONS, reviewed in the clinical context: July 06: White count 7.3 hemoglobin 9.6 platelets 91 July 05: White count 8.4 hemoglobin 9.7 platelets 61 sodium 131 potassium 4.2 B UN 23.4 creatinine 1.2 Assessment and plan -Fall resulting in left hip fracture -Displaced left subcapital femoral neck fracture secondary to fall. Left direct anterior hip hemiarthroplasty by Dr. Parker on July 03 STAN stockings for DVT prophylaxis. Aspirin held because of thrombocytopenia -Essential hypertension Coreg. -Hyperlipidemia Lipitor -Thrombocytopenia: Stable Resume aspirin -History of prostate cancer -BPH Flomax 0.8 mg nightly. 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 Seroquel. Deseril. -Primary osteoarthritis in multiple joints Patient is going to rehab. Medications reviewed. Thank you Dr. Parker
== END 2023-07-07 15:17 | DRG 522 ==
LOC: EC 14:02 → 4SSUR 17:30
PROVIDERS: ADMIT Orthopaedic Surgery; ATTEND Orthopaedic Surgery
PROC: 0SRS0J9 Replacement of Left Hip Joint, Femoral Surface with Synthetic Substitute, Cemented, Open Approach (ICD-10-PCS; principal; 2023-07-04 10:00)
DX: S72.012A Unspecified intracapsular fracture of left femur, initial encounter for closed fracture (principal); D62 Acute posthemorrhagic anemia; D69.6 Thrombocytopenia, unspecified; C61 Malignant neoplasm of prostate; F03.90 Unspecified dementia, unspecified severity, without behavioral disturbance, psychotic disturbance, mood disturbance, and anxiety; I10 Essential (primary) hypertension; E78.5 Hyperlipidemia, unspecified; M15.9 Polyosteoarthritis, unspecified; N40.0 Benign prostatic hyperplasia without lower urinary tract symptoms; K59.00 Constipation, unspecified; M93.1 Kienbock's disease of adults; M25.461 Effusion, right knee; M25.462 Effusion, left knee; Z79.899 Other long term (current) drug therapy; Z87.891 Personal history of nicotine dependence; W18.09XA Striking against other object with subsequent fall, initial encounter; Y93.01 Activity, walking, marching and hiking; Y92.009 Unspecified place in unspecified non-institutional (private) residence as the place of occurrence of the external cause
CPT/HCPCS: 36415; 71045; 73501; 73502; 80048; 80053; 81003; 83880; 84484; 85025; 85610; 85730; 96374; 96375; 96376; 99285